=== PATIENT | female | born 1950 | race Two or more races ===

== ENCOUNTER 2024-11-13 23:11 | Inpatient (IN) | payer OTHER ==
[~2024-11-13] VITALS: Ht 160 cm; Wt 76.0 kg
[2024-11-14] VITALS (9 sets, daily range): BP systolic 110–149; BP diastolic 50–58; PULSE 64–93; RESP 20–22; TEMP 97.4–98.6; O2SAT 95–100
[2024-11-14 00:04] LABS: Basophils # (auto) 0 10 ^3/uL (0-0.2); Basophils % (auto) 0.4 % (0.0-2.0); Eosinophils # (auto) 0.1 10 ^3/uL (0-0.8); Hematocrit 38.5 % (36.0-46.0); Hemoglobin 12.7 g/dL (12.2-16.2); Lymphocytes % (auto) 26.3 % (10.0-50.0); Mean Corpuscular Hemoglobin 29.8 pg (28.0-32.0); Mean Corpuscular Volume 90.2 fL (80.0-100.0); Monocytes # (auto) 0.7 10 ^3/uL (0-1.3); Monocytes % (auto) 9.8 % (0.0-12.0); Neutrophils # (auto) 4.6 10 ^3/uL (1.6-8.6); Neutrophils % (auto) 62.5 % (37.0-80.0); Nucleated Red Blood Cells % 0.1 %; Platelet Count (auto) 107 10^3/uL (140-450); Red Blood Cells 4.26 10^6/uL (4.0-5.20); Red Cell Distribution Width 14.6 % (11.8-14.3); White Blood Cell 7.4 10^3/uL (4.4-10.8)
[2024-11-14 00:14] LABS: Alkaline Phosphatase 69 U/L (46-116); Anion Gap 11 (5-15); BUN/Creatinine Ratio 21.2 (10.0-20.0); Bilirubin, Total 0.4 mg/dL (0.2-1.0); Potassium 4.3 mmol/L (3.5-5.1); Sodium 139 mmol/L (136-145); Total Protein 5.9 g/dL (5.7-8.2)
[2024-11-14] MEDS: SODIUM CHLORIDE 0.9% 1,000 ML IV ONE ×2 (00:23→01:31)
[2024-11-14 00:25] LABS: Alanine Aminotransferase 282 U/L (7-40); Albumin 3.2 g/dL (3.2-4.8); Aspartate Aminotransferase 225 U/L (13-40); Blood Urea Nitrogen 66 mg/dL (9-23); Calcium 7.9 mg/dL (8.7-10.4); Carbon Dioxide 18 mmol/L (20-31); Chloride 110 mmol/L (98-107); Glucose 126 mg/dL (74-106); Lipase 89 U/L (12-53)
[2024-11-14] MEDS: ALBUMIN 25% 100 ML IV ONE (00:25)
--- NOTE | 2024-11-14 01:10 | DVH ---
CHEST RADIOGRAPH Indication: Shortness of breath Technique: Single frontal view of the chest was obtained COMPARISON: None FINDINGS: Lines and Tubes: None Lungs: No evidence of focal consolidation. Moderate diffuse prominence of the pulmonary vasculature. Pleura: No effusion. No pneumothorax. Cardiomediastinal contours: Unremarkable Bones: Unremarkable IMPRESSION: 1. No acute disease. 2. Moderate diffuse prominence of the pulmonary vasculature.
--- NOTE | 2024-11-14 02:06 | ED.PDOC ---
History of Present Illness HPI Comments This patient is a 73-year-old female who appears to be in poor overall health who was brought to our ED today via EMS due to generalized weakness and hypotensive concerns over the past week. 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 Patient denies any fever nausea or vomiting. Patient was hypotensive on arrival. Patient presents as an ill individual. History of CHF. Patient may have a history of kidney concerns as well. Chief Complaint: General Weakness Time Seen by MD: 23:14 Reviewed Notes: Nurses Notes, Side Splitter Notes Allergies: Coded Allergies: NO KNOWN ALLERGIES (Unverified , 11/13/24) Information Source: Patient, Emergency Med Personnel Mode of Arrival: EMS Severity: Severe Timing: Days Duration: Since onset Prehospital treatment: None Past Medical History PAST MEDICAL HISTORY: CHF Past Medical History (Other): History of renal disease Surgical History: Denies all surgeries PROBATE CLERK History: No Pertinent PROBATE CLERK History Family History Family History: Reviewed,noncontributory to illness, No family hx of Cancer, No family hx of DM, No family hx of Heart regina, No family hx of HTN, No family hx ofKidney regina, No family hx of Liver regina, No family hx of Lung regina, No family hx of Stroke Social History Smoker: Non-Smoker Alcohol: Denies ETOH Use Drugs: Denies Drug Use Lives In: Home Constitutional: reports: fatigue, weakness; denies: chills, diaphoresis, fever, malaise, sweats, others EENTM: denies: blurred vision, double vision, ear bleeding, ear discharge, ear drainage, ear pain, ear ringing, eye pain, eye redness, hearing loss, mouth pain, mouth swelling, nasal discharge, nose bleeding, nose congestion, nose pain, photophobia, tearing, throat pain, throat swelling, voice changes, others Respiratory: denies: cough, hemoptysis, orthopnea, SOB at rest, shortness of breath, SOB with excertion, stridor, wheezing, others Cardiovascular: denies: chest pain, dizzy spells, diaphoresis, Dyspnea on exertion, edema, irregular heart beat, left arm pain, lightheadedness, p alpitations, PND, syncope, others Gastrointestinal: denies: abdomen distended, abdominal pain, blood streaked bowels, constipated, diarrhea, dysphagia, difficulty swallowing, hematemesis, melena, nausea, poor appetite, poor fluid intake, rectal bleeding, rectal pain, vomiting, others Genitourinary: denies: abnormal vagina bleeding, burning, dyspareunia, dysuria, flank pain, frequency, hematuria, incontinence, pain, , vagina discharge, urgency, others Neurological: reports: dizziness; denies: fainting, headache, left sided numbness, left sided weakness, numbness, paresthesia, pre-existing deficit, right sided numbness, right sided weakness, seizure, speech problems, tingling, tremors, weakness, others Musculoskeletal: denies: back pain, gout, joint pain, joint swelling, muscle pain, muscle stiffness, neck pain, others Integumetry: denies: bruises, change in color, change in hair/nails, dryness, laceration, lesions, lumps, rash, wounds, others Allergic/Immunocompromised: denies: Difficulty Healing, Frequent Infections, Hives, Itching, others Hematologic/Lymphatic: denies: anemia, blood clots, easy bleeding, easy bruising, swollen glands, others Endocrine: denies: excessive hunger, excessive sweating, excessive thirst, excessive urination, flushing, intolerance to cold, intolerance to heat, unexplained weight gain, unexplained weight loss, others Psychiatric: denies: anxiety, bipolar disorder, depression, hopeless, panic disorder, schizophrenia, sleepless, suicidal, others Physical Exam General Appearance: Moderate Distress (Patient presents as a moderately ill 73-year-old female. Patient looks toxic.), Normal HEENT: Normal ENT Inspection, Pharynx Normal, TMs Normal Neck: Full Range of Motion, Non-Tender, Normal, Normal Inspection Respiratory: Chest Non-Tender, No Accessory Muscle Use, Other (Patient displays some mild rhonchi in global bilateral lung amador.) Cardiovascular: No Edema, No JVD, No Murmur, No Gallop, Normal Peripheral Pulses, Regular Rate/Rhythm Breast Exam: Deferred Gastrointestinal: No Organomegaly, Non Tender, No Pulsatile Mass, Normal Bowel Sounds, Soft Genitalia: Deferred Pelvic: Deferred Rectal: Deferred Extremities: No calf tenderness, Normal capillary refill, Normal inspection, Normal range of motion Neurologic: Disoriented, Motor Weakness Cerebellar Function: NOT DONE Reflexes: NOT DONE Skin: Dry, Normal Color, Warm Lymphatic: No Adenopathy Was a procedure done? Was a procedure done?: No Differential Dx Considerations may include: Sepsis, electrolyte abnormality, COVID-19, pneumonia, influenza, renal disease, CHF X-Ray, Labs, Meds, VS Vital Signs Date Time Temp Pulse Resp B/P (MAP) Pulse Ox O2 Delivery O2 Flow Rate FiO2 11/13/24 23:34 67 11/13/24 23:12 98.8 72 16 85/52 (63) 94 98.8 Lab Test 11/14/24 00:50 11/13/24 23:40 Range/Units Troponin I High Sensitivity 1693 *H 1704 *H </=34 ng/L White Blood Count 7.4 4.4-10.8 10^3/uL Red Blood Count 4.26 4.0-5.20 10^6/uL Hemoglobin 12.7 12.2-16.2 g/dL Hematocrit 38.5 36.0-46.0 % Mean Corpuscular Volume 90.2 80.0-100.0 fL Mean Corpuscular Hemoglobin 29.8 28.0-32.0 pg Mean Corpuscular Hemoglobin Concent 33.0 32.0-36.0 g/dL Red Cell Distribution Width 14.6 H 11.8-14.3 % Platelet Count 107 L 140-450 10^3/uL Mean Platelet Volume 10.8 6.9-10.8 fL Neutrophils (%) (Auto) 62.5 37.0-80.0 % Lymphocytes (%) (Auto) 26.3 10.0-50.0 % Monocytes (%) (Auto) 9.8 0.0-12.0 % Eosinophils (%) (Auto) 1.0 0.0-7.0 % Basophils (%) (Auto) 0.4 0.0-2.0 % Neutrophils # (Auto) 4.6 1.6-8.6 10 ^3/uL Lymphocytes # (Auto) 2.0 0.4-5.4 10 ^3/uL Monocytes # (Auto) 0.7 0-1.3 10 ^3/uL Eosinophils # (Auto) 0.1 0-0.8 10 ^3/uL Basophils # (Auto) 0 0-0.2 10 ^3/uL Nucleated Red Blood Cells 0.1 % D-Dimer, Quantitative 1.07 H 0.0-0.49 mg/L FEU Sodium Level 139 136-145 mmol/L Potassium Level 4.3 3.5-5.1 mmol/L Chloride Level 110 H 98-107 mmol/L Carbon Dioxide Level 18 L 20-31 mmol/L Anion Gap 11 5-15 Blood Urea Nitrogen 66 H 9-23 mg/dL Creatinine 3.12 H 0.550-1.02 mg/dL Glomerular Filtration Rate Calc 15 >90 mL/min BUN/Creatinine Ratio 21.2 H 10.0-20.0 Serum Glucose 126 H 74-106 mg/dL Lactic Acid Level 1.6 0.4-2.0 mmol/L Calcium Level 7.9 L 8.7-10.4 mg/dL Total Bilirubin 0.4 0.2-1.0 mg/dL Aspartate Amino Transferase (AST) 225 H 13-40 U/L Alanine Aminotransferase (ALT) 282 H 7-40 U/L Alkaline Phosphatase 69 46-116 U/L B-Type Natriuretic Peptide 215.76 0-100 pg/mL Total Protein 5.9 5.7-8.2 g/dL Albumin 3.2 3.2-4.8 g/dL Lipase 89 H 12-53 U/L Current Medications Medications (Trade) Dose Ordered Sig/Richard Route Start Time Stop Time Status Last Admin Sodium Chloride 1,000 ml @ 150 mls/hr Q6H40M ONCE IV 11/13/24 23:30 11/14/24 01:27 DC 11/14/24 00:23 Albumin Human 100 ml @ 100 mls/hr ONCE ONCE IV 11/13/24 23:30 11/14/24 00:29 DC 11/14/24 00:25 Sodium Chloride 1,000 ml @ 1,000 mls/hr Q1H ONCE IV 11/14/24 01:30 11/14/24 02:29 11/14/24 01:31 X-Ray, Labs, Meds, VS Comment All studies performed the ED were evaluated by me personally. Patient had a significant elevated troponin neuro 1704 and 1693. EKG was remarkable for sinus rhythm with a rate of 67 old inferior infarct, abnormal T-wave in anterior lateral leads and prolonged QT interval. [place] interval of 198 and QT inguinal 527. Discussed case with Dr. Herrera's with respect to notify and Cardiology. He stated to start the patient on heparin and that cardio will evaluate in the morning as the patient has a history of elevated troponins. Additional significant studies revealed an elevated lipase, acute CHF exacerbation, significant acute on chronic renal injury, hypocalcemia and elevated D-dimer. X-ray revealed some pulmonary edema. With the will be entered for multiple consultations including critical nephrology consult as the patient may be in the need of dialysis at this stage. Cardiology will evaluate for cardiac concerns. Patient will require a V/Q scan on Saturday for evaluation of PE. Heparin has been initiated. CT of abdomen was pending at time of this note for evaluation of transaminitis concerns including lipase. Time of 1ST Reevaluation: 02:05 Reevaluation 1ST: Unchanged Consultation: PCP, Cardiology, Other (Nephrology) Patient Education/Counseling: Diagnosis, Treatment Family Education/Counseling: Diagnosis, Treatment Departure 1 Departure Time of Disposition: 02:03 Impression: Primary Impression: Acute coronary syndrome Additional Impressions: Elevated troponin Acute exacerbation of CHF (congestive heart failure) [id number] kidney injury Hypocalcemia Transaminitis Elevated lipase Elevated d-dimer Pulmonary edema Hypotension Disposition: 09 ADMITTED INPATIENT Condition: Poor Discharged With: Self Critical Care Note Critical Care Time?: Yes (45 min-critical care time only) Critical care comment: Due to the high probability of a clinically significant and possibly life- threatening deterioration, this patient required my highest level of preparedness to intervene emergently and therefore, I personally provided 45 minutes of critical care time exclusive of time spent on separate billable procedures. This critical care time includes, but is not limited to, obtaining additional history, re-examination of the patient, evaluation of pulse oximetry, ordering and reviewing of studies as well as arrangement of urgent treatment with the development of a management plan, evaluation of patient's response to treatment as well as frequent reassessments and discussions with other providers. Stability Stability form required: No Heart Score Heart Score: Heart Score Response (Comments) Value History Slightly Suspicious 0 EKG Normal 0 Age >65 2 Risk Factors 1 or 2 risk factors 1 Troponin >3 x's Normal limit 2 Total 5 ANNMARIE FARIAS PAC Nov 14, 2024 02:06
[2024-11-14 02:23] LABS: COVID19 ANTIGEN SOFIA FIA NEGATIVE (NEGATIVE); Rapid Influenza B Negative (Negative)
[2024-11-14 02:24] LABS: Rapid Influenza A Positive (Negative)
[2024-11-14] MEDS: CALCIUM GLUC 1,000mg/50ml-NS 50 ML IV ONE (02:40)
--- NOTE | 2024-11-14 02:53 | DVH ---
Exam: CT CT AB PEL WO CON-NO ORAL OR IV History: Elevated labs Comparison Study: None Technique: Multidetector spiral CT of the abdomen was performed from lung bases to pubic symphysis. I maging was performed without IV contrast. Axial, coronal and sagittal multiplanar reformats were obta ined from the axial data set by the technologist. Radiation Dose : 1. Abdomen/Pelvis: CTDIvol 19.12 mGy, DLP 1027.03 mGy*cm. Findings: Evaluation of solid organs is limited due to lack of intravenous contrast use. Lung Bases: Moderate patchy multifocal infiltrate within the right middle lobe, lingula and bilateral lower lobes. Normal heart size. No pleural or pericardial effusion. Liver: The liver is normal in size. No focal lesions. Gallbladder and Biliary Tree: Cholelithiasis and mild gallbladder wall thickening/ edema. Spleen: Unremarkable Pancreas: The pancreas is grossly normal in appearance. Adrenal Glands: Unremarkable Kidneys: Kidneys are grossly normal without calculi or hydronephrosis. Bilateral renal cortical cysts measure up to 1.6 cm on the right and 1.5 cm on the left. Bladder: Grossly unremarkable for degree of distention. Bowel: The stomach is grossly normal in appearance. Small bowel and colon are normal in caliber and d istribution. The appendix is normal. Ascites: Absent Lymphadenopathy: No mesenteric, retroperitoneal or periportal lymphadenopathy. Abdominal Wall and Mesentery: Unremarkable. Small fat containing umbilical hernia. Vasculature: The visualized abdominal aorta is normal in size and caliber. Atherosclerotic vascular c alcifications. Evaluation of abdominal and pelvic vessels is limited due to lack of intravenous cont rast. Pelvic Organs: Unremarkable Musculoskeletal: No aggressive focal bony lesions, acute fractures or dislocation. Degenerative figueroa e of the lumbar spine noted. IMPRESSION: 1. Moderate patchy multifocal bilateral pulmonary infiltrate within the lung bases. 2. Cholelithiasis and mild gallbladder wall thickening /edema. Radiation optimization: All CT scans at this facility use at least one of these dose optimization kelly hniques: automated exposure control mA and/or kV adjustment per patient size (includes targeted exam s where dose is matched to clinical indication) or iterative reconstruction.
[2024-11-14 02:55] LABS: INR 1.13 (0.9-1.15); Partial Thromboplastin Time 32.1 SEC (24.5-34.5); Prothrombin Time 11.8 sec (9.3-11.8)
[2024-11-14] MEDS: HEPARIN SODIUM (PORCINE) 5000 UNITS/ML 1ML VIAL IV ONE ×2 (03:56→04:15)
[2024-11-14] MEDS: HEPARIN DRIP/D5W 100UNITS/ML 250 ML IV SCH ×2 (04:19→12:15)
--- NOTE | 2024-11-14 06:48 | ECG ---
[facility] Test Date: 2024-11-13 Test Time: 23:34:38 Pat Name: BRYCE ROIS Department: ED Room: 0282T Gender: F Rf Design Engineer: : [id number] Requested By: ANNMARIE FARIAS Order Number: [id number] Reading MD: Dung Curran Measurements Intervals [place] Rate: 67 P: 16 NM: 198 QRS: -3 QRSD: 101 T: 101 QT: 527 QTc: 557 Interpretive Statements Sinus rhythm Inferior infarct, old Abnrm T, consider ischemia, anterolateral lds Prolonged QT interval Electronically Signed On 11-18-2024 12:43:27 PDT by Dung Curran Please click the below link to view image of tracing.
[2024-11-14] MEDS ORDERED: PREG100C66 PO (08:58)
[2024-11-14] MEDS ORDERED: OMEP1CAP70 PO (08:58)
[2024-11-14] MEDS ORDERED: SPIR25TA8 PO (08:58)
[2024-11-14] MEDS ORDERED: LOSA-535 PO (08:58)
[2024-11-14] MEDS ORDERED: FURO20TA4 PO (08:58)
[2024-11-14] MEDS ORDERED: DIPH-751 PO (08:58)
[2024-11-14] MEDS ORDERED: MET25T PO (08:58)
[2024-11-14] MEDS ORDERED: CLON0.2T PO (08:58)
[2024-11-14] MEDS ORDERED: ISOS1TAB37 PO (08:58)
[2024-11-14] MEDS ORDERED: ATOR10TA52 PO (08:58)
[2024-11-14] MEDS ORDERED: ONDANSETRON HCL 4 MG/2 ML VIAL IV PRN (09:00)
[2024-11-14] MEDS ORDERED: MORPHINE SULFATE INJ 2 MG/ml SYRG IV PRN (09:00)
[2024-11-14] MEDS ORDERED: DEXTROSE (50%) 50ML SYRG IV PRN (09:00)
[2024-11-14] MEDS ORDERED: NITROGLYCERIN 0.4 MG SL TAB SL PRN (09:00)
--- NOTE | 2024-11-14 09:07 | DVHHP2 ---
History of Present Illness Reason for Visit: Generalized weakness History of Present Illness Dodie Ramirez is a 73-year-old female with past medical history of hypertension, hyperlipidemia, diabetes type 2, CKD, CHF, spinal stenosis, and right knee surgery who presents to the ED with generalized weakness x1 week. Patient reports that her daughter at home is sick and she may have gotten sick from her. Patient also states that she uses a front wheel walker to ambulate. Patient denies any chest pain, shortness of breath, fever, chills, lightheadedness, dizziness, recent trauma or injury, recent travels, abdominal pain, nausea, vomiting, or diarrhea. Cardiovascular: CHF, HTN, hyperipidemia Renal/: Chronic renal insuff Endocrine: Diabetes Past Medical History Spinal stenosis Past Surgical History: Other (Right knee surgery) Family History: DM, Hypertension, Other (Mom and dad with diabetes and hypertension) Smoke: No ALCOHOL: none Drugs: None Lives: with Family Domestic Violence: Neg Review of Systems Constitutional: Yes: Weakness Allergies: Coded Allergies: NO KNOWN ALLERGIES (Unverified , 11/13/24) Medications Current Medications Medications Dose Ordered Sig/Richard Route Start Time Stop Time Status Last Admin Dose Admin Heparin Sodium/ Dextrose 250 ml @ 9 mls/hr Q24H IV 11/14/24 04:00 11/14/24 04:19 9 MLS/HR Oseltamivir Phosphate 75 mg DAILY PO 11/14/24 10:00 11/19/24 09:59 UNV Exam Vital Signs Vital Signs Date Time Temp Pulse Resp B/P (MAP) Pulse Ox O2 Delivery O2 Flow Rate FiO2 11/14/24 07:21 100 Room Air* 0 21 11/14/24 06:15 98.6 78 14 121/65 (83) 98.6 General Appearance: Alert, Oriented X3, Cooperative, No acute distress HEENT: Atraumatic, PERRLA, EOMI, Mucous membr. moist/pink Respiratory: Normal air movement Cardiovascular: Normal S1, Normal S2, No murmurs Abdominal: Normal bowel sounds, Soft, No tenderness, No hepatospenomegaly, No masses Extremities: No clubbing, No cyanosis, Normal pulses Skin: No significant lesion Neuro: Normal speech, Strength at 5/5 X4 ext, Normal tone, Sensation intact Psych/Mental Status: Mental status NL, Mood NL Labs/Xrays Labs Test 11/14/24 02:35 11/14/24 01:54 11/13/24 23:40 Range/Units Troponin I High Sensitivity 1314 *H </=34 ng/L Influenza Type A Antigen Positive Negative Influenza Type B Antigen Negative Negative SARS-CoV-2 Antigen (Rapid) Negative NEGATIVE White Blood Count 7.4 4.4-10.8 10^3/uL Red Blood Count 4.26 4.0-5.20 10^6/uL Hemoglobin 12.7 12.2-16.2 g/dL Hematocrit 38.5 36.0-46.0 % Mean Corpuscular Volume 90.2 80.0-100.0 fL Mean Corpuscular Hemoglobin 29.8 28.0-32.0 pg Mean Corpuscular Hemoglobin Concent 33.0 32.0-36.0 g/dL Red Cell Distribution Width 14.6 H 11.8-14.3 % Platelet Count 107 L 140-450 10^3/uL Mean Platelet Volume 10.8 6.9-10.8 fL Neutrophils (%) (Auto) 62.5 37.0-80.0 % Lymphocytes (%) (Auto) 26.3 10.0-50.0 % Monocytes (%) (Auto) 9.8 0.0-12.0 % Eosinophils (%) (Auto) 1.0 0.0-7.0 % Basophils (%) (Auto) 0.4 0.0-2.0 % Neutrophils # (Auto) 4.6 1.6-8.6 10 ^3/uL Lymphocytes # (Auto) 2.0 0.4-5.4 10 ^3/uL Monocytes # (Auto) 0.7 0-1.3 10 ^3/uL Eosinophils # (Auto) 0.1 0-0.8 10 ^3/uL Basophils # (Auto) 0 0-0.2 10 ^3/uL Nucleated Red Blood Cells 0.1 % Prothrombin Time 11.8 9.3-11.8 sec Prothrombin Time INR 1.13 0.9-1.15 Activated Partial Thromboplast Time 32.1 24.5-34.5 SEC D-Dimer, Quantitative 1.07 H 0.0-0.49 mg/L FEU Sodium Level 139 136-145 mmol/L Potassium Level 4.3 3.5-5.1 mmol/L Chloride Level 110 H 98-107 mmol/L Carbon Dioxide Level 18 L 20-31 mmol/L Anion Gap 11 5-15 Blood Urea Nitrogen 66 H 9-23 mg/dL Creatinine 3.12 H 0.550-1.02 mg/dL Glomerular Filtration Rate Calc 15 >90 mL/min BUN/Creatinine Ratio 21.2 H 10.0-20.0 Serum Glucose 126 H 74-106 mg/dL Lactic Acid Level 1.6 0.4-2.0 mmol/L Calcium Level 7.9 L 8.7-10.4 mg/dL Total Bilirubin 0.4 0.2-1.0 mg/dL Aspartate Amino Transferase (AST) 225 H 13-40 U/L Alanine Aminotransferase (ALT) 282 H 7-40 U/L Alkaline Phosphatase 69 46-116 U/L B-Type Natriuretic Peptide 215.76 0-100 pg/mL Total Protein 5.9 5.7-8.2 g/dL Albumin 3.2 3.2-4.8 g/dL Exam: CT CT AB PEL WO CON-NO ORAL OR IV History: Elevated labs Comparison Study: None Technique: Multidetector spiral CT of the abdomen was performed from lung bases to pubic symphysis. Imaging was performed without IV contrast. Axial, coronal and sagittal multiplanar reformats were obtained from the axial data set by the technologist. Radiation Dose : 1. Abdomen/Pelvis: CTDIvol 19.12 mGy, DLP 1027.03 mGy*cm. Findings: Evaluation of solid organs is limited due to lack of intravenous contrast use. Lung Bases: Moderate patchy multifocal infiltrate within the right middle lobe, lingula and bilateral lower lobes. Normal heart size. No pleural or pericardial effusion. Liver: The liver is normal in size. No focal lesions. Gallbladder and Biliary Tree: Cholelithiasis and mild gallbladder wall thickening/ edema. Spleen: Unremarkable Pancreas: The pancreas is grossly normal in appearance. Adrenal Glands: Unremarkable Kidneys: Kidneys are grossly normal without calculi or hydronephrosis. Bilateral renal cortical cysts measure up to 1.6 cm on the right and 1.5 cm on the left. Bladder: Grossly unremarkable for degree of distention. Bowel: The stomach is grossly normal in appearance. Small bowel and colon are normal in caliber and distribution. The appendix is normal. Ascites: Absent Lymphadenopathy: No mesenteric, retroperitoneal or periportal lymphadenopathy. Abdominal Wall and Mesentery: Unremarkable. Small fat containing umbilical hernia. Vasculature: The visualized abdominal aorta is normal in size and caliber. Atherosclerotic vascular calcifications. Evaluation of abdominal and pelvic vessels is limited due to lack of intravenous contrast. Pelvic Organs: Unremarkable Musculoskeletal: No aggressive focal bony lesions, acute fractures or dislocation. Degenerative change of the lumbar spine noted. IMPRESSION: 1. Moderate patchy multifocal bilateral pulmonary infiltrate within the lung bases. 2. Cholelithiasis and mild gallbladder wall thickening /edema. CHEST RADIOGRAPH Indication: Shortness of breath Technique: Single frontal view of the chest was obtained COMPARISON: None FINDINGS: Lines and Tubes: None Lungs: No evidence of focal consolidation. Moderate diffuse prominence of the pulmonary vasculature. Pleura: No effusion. No pneumothorax. Cardiomediastinal contours: Unremarkable Bones: Unremarkable IMPRESSION: 1. No acute disease. 2. Moderate diffuse prominence of the pulmonary vasculature. Assessment/Plan Assessment/Plan Assessment Generalized weakness Transaminitis Acute on chronic renal insufficiency Hyperlipasemia Probable pneumonia Influenza A positive Cholelithiasis History of hypertension History of hyperlipidemia History of diabetes type 2 History of CHF History of spinal stenosis History of right knee surgery Plan Admit to tele Heparin drip started in ED Elevated troponins Calcium gluc given in ED NS 2 L given ED Respiratory treatments EKG CT abdomen and pelvis D-dimer COVID test Blood cultures Lactic Lipase BNP Hemoglobin A1c ISS and Accu-Cheks Tamiflu ordered BNP Strict I&Os Daily weights V/Q scan Amylase Lipase TSH A1c Lipid panel UDS Echo ordered IV antibiotics-ceftriaxone Home medications reconciled DVT prophylaxis-patient on heparin PUD prophylaxis-patient on omeprazole Discussed plan of care with patient and nurse Cardiology consult Nephrology consult Consider GI consult if liver enzymes trend upwards Plan discussed with: Patient My Orders Orders - JAEL BAER EARLY CHILDHOOD SERVICES COORDINATOR Procedure Category Date Status Time Amylase LAB 11/14/24 In Process 08:53 Lipase LAB 11/14/24 In Process 08:53 Oseltamivir 75mg PHA 11/14/24 Logged Capsule (Tamiflu 75mg 10:00 *Dr. [facility] CONS 11/14/24 Transmitted -[place] 08:54 * Cardiology Consult CONS 11/14/24 Transmitted 08:54 Furosemide Tablet PHA 11/14/24 Logged (Lasix Tablet) 10:00 Metoprolol Tartrate PHA 11/14/24 Logged Tablet (Lopressor Ta 10:00 Spironolactone PHA 11/14/24 Logged (Aldactone) 10:00 (Nf) Isosorbide PHA 11/14/24 Logged Dinitrate 10:00 (Nf) Losartan PHA 11/14/24 Logged Potassium 10:00 (Nf) Omeprazole PHA 11/14/24 Logged (Omeprazole Dr) 10:00 (Nf) Pregabalin PHA 11/14/24 Logged 10:00 Atorvastatin (Lipitor) PHA 11/14/24 Logged 22:00 Clonidine Hcl Tablet PHA 11/14/24 Logged (Catapres Tablet) 10:00 Admit ADMIT 11/14/24 Transmitted 08:59 Allergies MARCELLA 11/14/24 In Process 08:59 Code Status CODE 11/14/24 Transmitted 08:59 Hydrocodone-Acet PHA 11/14/24 Logged 5/325mg Tab ([place] 09:00 Ondansetron Hcl PHA 11/14/24 Logged (Zofran) 09:00 Complete Blood Count LAB 11/15/24 Verified 04:00 Comprehensive LAB 11/15/24 Verified Metabolic Panel 04:00 Npo (Nothing By DIET 11/14/24 Transmitted Mouth) Diet Breakfast Echo 2d Mode Cardiac US 11/14/24 Logged DOP 08:59 Acetaminophen Tablet PHA 11/14/24 Logged (Tylenol Tablet) 09:00 Nitroglycerin PHA 11/14/24 Logged Sublingual (Ntrostat 09:00 Morphine Sulfate PHA 11/14/24 Logged Injection 09:00 Notify Of Changes [facility] 11/14/24 In Process From Base 08:59 Stenocaptioner For [facility] 11/14/24 In Process 24 Hours 08:59 Emergency Dysrhythmia [facility] 11/14/24 In Process Protocol 08:59 Rhythm Strips Once [facility] 11/14/24 In Process Every Shift 08:59 Oxygen By Nasal RT 11/14/24 Transmitted Cannula 08:59 Ceftriaxone 1gm/50ml PHA 11/14/24 Logged D5w (Rocephin) 09:00 Drug Screen LAB 11/14/24 Transmitted 08:59 Thyroid Stimulating LAB 11/14/24 Transmitted Hormone 08:59 Lipid Panel LAB 11/14/24 Transmitted 08:59 Hemoglobin A1c LAB 11/14/24 Transmitted 08:59 Glucose Blood PHA 11/14/24 Logged (Accu-Chek Comfort 12:00 Insulin R (Human) PHA 11/14/24 Logged (Insulin R) 12:00 Dextrose 50% Syringe PHA 11/14/24 Logged 09:00 Date of Service: Nov 14, 2024 Billing Provider: JAEL BAER Common Visit Codes: [id number] INP/OBS CARE (HIGH) JAEL BAER Nov 14, 2024 09:07
[2024-11-14] MEDS: PANTOPRAZOLE 40 MG TAB PO SCH (09:40)
[2024-11-14] MEDS: cefTRIAXone 1GM/50ML D5W 50 ML IV SCH (09:40)
[2024-11-14 09:44] LABS: Triglycerides 95 mg/dL (< 150)
[2024-11-14 09:45] LABS: LDL Cholesterol 20 mg/dL (< 100)
[2024-11-14 09:46] LABS: Cholesterol 58 mg/dL (< 200)
[2024-11-14 09:47] LABS: HDL Cholesterol 15 mg/dL (40-59)
[2024-11-14 09:55] LABS: Amylase 80 U/L (30-118)
[2024-11-14] MEDS: FUROSEMIDE 20 MG TAB PO SCH (10:00)
[2024-11-14] MEDS: ISOSORBIDE DINITRATE 10 MG TAB PO SCH (10:00)
[2024-11-14] MEDS: METOPROLOL TARTRATE 25 MG TAB PO SCH (10:00)
[2024-11-14] MEDS: cloNIDine HCL 0.1 MG TAB PO SCH (10:00)
[2024-11-14 10:26] LABS: Lipase 73 U/L (12-53)
[2024-11-14] MEDS: PREGABALIN 25 MG CAP PO SCH (10:37)
[2024-11-14] MEDS: LOSARTAN POTASSIUM 50 MG TAB PO SCH (10:37)
[2024-11-14] MEDS: SPIRONOLACTONE 25 MG TAB PO SCH (10:37)
[2024-11-14] MEDS: OSELTAMIVIR 30 MG CAP PO SCH (10:37)
[2024-11-14 11:06] LABS: INR 1.13 (0.9-1.15); Prothrombin Time 11.8 sec (9.3-11.8)
[2024-11-14 11:09] LABS: Partial Thromboplastin Time > 139.0 SEC (24.5-34.5)
[2024-11-14] MEDS: InsuLIN REG 1unit/0.01ml Soln (100units/ml) SC SCH (12:00)
[2024-11-14] MEDS: ACCU-CHEK COMFORT CURVE STRIP VI SCH (12:01)
--- NOTE | 2024-11-14 12:16 | CONS ---
Pharmacy Clinical Information: HEPARIN PER RX APTT RESULT >139 [11/14/24@1025] ON RATE 9ML/HR HEPARIN HELD 1 HOUR FROM 1115 TO 1215 DRIP TO BE RESUMED @1215 TO NEW RATE 6ML/HR APTT ORDERED FOR 11/14@1815 COMMUNICATED WITH KALPESH REIS PHARMACIST Nov 14, 2024 12:16
--- NOTE | 2024-11-14 12:54 | DVHINCON2 ---
Date Seen: Nov 14, 2024 Referring Physician PARMINDER Thompson Reason for Consultation Elevated troponin History of Present Illness This 73-year-old female, [place] mainly speaking, presents in the ED via EMS with a chief complaint of generalized weakness. The patient reports generalized weakness associated with productive phlegm. In the emergency department, the patient underwent a 12 lead ECG revealing normal sinus rhythm with prolonged QT and an old inferior infarct, troponin elevation peaked at 1700 and now down trending. The patient was placed on heparin drip and aspirin. Upon assessment, the patient denies dizziness, diaphoresis, chest pain, orthopnea, PND, or dyspnea. She states that history of CHF and currently taking spironolactone, she underwent a coronary angiogram five years ago with normal coronaries. She does not have a Cardiology that she follow ups with. Significant past medical history of hypertension, CHF, diabetes type 2, CKD, and spinal stenosis. Past Medical History As stated in HPI Past Surgical History Denies Family History: Diabetes mellitus G8 MOTHER Hypertension G8 MOTHER Family History Reviewed, non-contributory to the management of this case. Social History The patient lives at home, denies smoking, alcohol or illicit drugs abuse. Allergies: Coded Allergies: NO KNOWN ALLERGIES (Unverified , 11/13/24) Home Meds Reported Medications Morphine Sulfate (Morphine Sulfate) 15 Mg Tab, 15 MG PO Q8HPRN PRN for PAIN SCALE 7 THRU 10, TAB 11/14/24 Furosemide (Furosemide) 20 Mg Tab, 1 TAB PO BID 11/14/24 Omeprazole (Omeprazole Dr) 20 Mg Cap, 1 CAP PO DAILY 11/14/24 Isosorbide Dinitrate (Isosorbide Dinitrate) 30 Mg Tab, 1 TAB PO DAILY 11/14/24 Metoprolol Tartrate (Lopressor) 25 Mg Tb, 1 TAB PO DAILY 11/14/24 Pregabalin (Pregabalin) 100 Mg Cap, 1 CAP PO BID 11/14/24 Atorvastatin Calcium (ATORVASTATIN CALCIUM) 10 Mg Tab, 1 TAB PO 11/14/24 Losartan Potassium (Losartan Potassium) 100 Mg Tab, 1 TAB PO DAILY 11/14/24 Spironolactone (Spironolactone) 25 Mg Tab, 1 TAB PO BID 11/14/24 Diphenhydramine Hcl (Banophen) 25 Mg Cap, 2 PO BID 11/14/24 Clonidine Hydrochloride (Clonidine Hcl) 0.2 Mg Tab, TAB PO 11/14/24 Current Medications Current Medications Medications (Trade) Dose Ordered Sig/Richard Route PRN Reason Start Time Stop Time Status Last Admin Heparin Sodium/ Dextrose 250 ml @ 9 mls/hr Q24H IV 11/14/24 04:00 11/14/24 12:08 DC 11/14/24 04:19 Oseltamivir Phosphate (Tamiflu 30MG Capsule) 30 mg DAILY PO 11/14/24 10:00 11/19/24 09:59 11/14/24 10:37 Furosemide (Lasix Tablet) 20 mg BIDD PO 11/14/24 10:00 Metoprolol Tartrate (Lopressor Tablet) 25 mg DAILY PO 11/14/24 10:00 Spironolactone (Aldactone) 25 mg BID PO 11/14/24 10:00 11/14/24 10:37 Isosorbide Dinitrate (Isordil Tablet) 30 mg DAILY PO 11/14/24 10:00 Losartan Potassium (Cozaar Tablet) 100 mg DAILY PO 11/14/24 10:00 11/14/24 10:37 Pantoprazole Sodium (Protonix Tablet) 40 mg DAILY@0700 PO 11/14/24 09:27 11/14/24 09:40 Pregabalin (Lyrica Capsule) 100 mg BID PO 11/14/24 10:00 11/14/24 10:37 Atorvastatin Calcium (Lipitor) 10 mg HS PO 11/14/24 22:00 Clonidine HCl (Catapres Tablet) 0.2 mg BID PO 11/14/24 10:00 Acetaminophen/ Hydrocodone Bitart (Engadine 5/325MG Tab) 1 tab Q4HP PRN PO MODERATE PAIN (4-6 PAIN SCALE) 11/14/24 09:00 Ondansetron HCl (Zofran) 4 mg Q4HP PRN IV NAUSEA / VOMITING 11/14/24 09:00 Acetaminophen (Tylenol Tablet) 650 mg Q6HP PRN PO PAIN SCALE 1-3 OR TEMP>100.4 11/14/24 09:00 Nitroglycerin (Ntrostat Sublingual) 0.4 mg Q5MINP PRN SL FOR CHEST PAIN 11/14/24 09:00 Morphine Sulfate 2 mg Q30M PRN IV FOR CHEST PAIN 11/14/24 09:00 Ceftriaxone Sodium 50 ml @ 100 mls/hr DAILY@09 IV 11/14/24 09:00 11/14/24 09:40 Diagnostic Test (Pha) (Accu-Chek Comfort Curve T) 1 strip Q6HR 11/14/24 12:00 11/14/24 12:01 Insulin Human Regular (InsuLIN R) Q6HR SC 11/14/24 12:00 Dextrose 50 ml UD PRN IV Blood Sugar LESS THAN 60 11/14/24 09:00 Heparin Sodium/ Dextrose 250 ml @ 6 mls/hr Q24H IV 11/14/24 12:15 Review of Systems Constitutional: No symptom reported Ears, Nose, & Throat: No symptom reported Eyes: No symptom reported Neurological: No symptoms reported Pulmonary/Respiratory: Productive cough Cardiovascular: No symptom reported Gastrointestinal: No symptom reported Genitourinary: No symptom reported Musculoskeletal: No symptom reported Skin: No symptom reported Psychiatric: No symptom reported Endocrine: No symptom reported Hematologic/Lymphatic: No symptom reported Vital Signs Vital Signs Date Time Temp Pulse Resp B/P (MAP) Pulse Ox O2 Delivery O2 Flow Rate FiO2 11/14/24 12:04 64 21 98 Room Air* 0 21 11/14/24 11:45 97.5 110/58 (75) 97.5 Physical Exam INITIAL VITAL SIGNS: Reviewed by me GENERAL: Alert and interactive. No acute distress. HEAD: Head is normocephalic and atraumatic. EYES: EOMI, PERRL. No scleral icterus. No conjunctival injection. ENT: Moist mucous membranes. NECK: Supple, No masses, Full range of motion. RESPIRATORY: No tachypnea. Clear breath sounds bilaterally. No wheezing, rales, rhonchi. CV: Regular rate and rhythm. No dyspnea, no shortness of breath GI/: Active bowel sounds, soft, nondistended, nontender. No guarding. No rebound. No masses. No CVA tenderness. INTEGUMENTARY: Warm and dry. No obvious rashes. NEUROLOGIC: Alert and oriented. Face is symmetric. Speech is normal. Moves all extremities equally. Labs/Diagnostic Data Labs Test 11/14/24 10:25 11/14/24 02:35 11/14/24 01:54 11/13/24 23:40 Range/Units Prothrombin Time 11.8 9.3-11.8 sec Prothrombin Time INR 1.13 0.9-1.15 Activated Partial Thromboplast Time > 139.0 *H 24.5-34.5 SEC Troponin I High Sensitivity 1314 *H </=34 ng/L Triglycerides Level 95 < 150 mg/dL Cholesterol Level 58 < 200 mg/dL LDL Cholesterol 20 < 100 mg/dL HDL Cholesterol 15 L 40-59 mg/dL Amylase Level 80 30-118 U/L Lipase 73 H 12-53 U/L Thyroid Stimulating Hormone (TSH) 0.49 L 0.55-4.78 uIU/mL Influenza Type A Antigen Positive Negative Influenza Type B Antigen Negative Negative SARS-CoV-2 Antigen (Rapid) Negative NEGATIVE White Blood Count 7.4 4.4-10.8 10^3/uL Red Blood Count 4.26 4.0-5.20 10^6/uL Hemoglobin 12.7 12.2-16.2 g/dL Hematocrit 38.5 36.0-46.0 % Mean Corpuscular Volume 90.2 80.0-100.0 fL Mean Corpuscular Hemoglobin 29.8 28.0-32.0 pg Mean Corpuscular Hemoglobin Concent 33.0 32.0-36.0 g/dL Red Cell Distribution Width 14.6 H 11.8-14.3 % Platelet Count 107 L 140-450 10^3/uL Mean Platelet Volume 10.8 6.9-10.8 fL Neutrophils (%) (Auto) 62.5 37.0-80.0 % Lymphocytes (%) (Auto) 26.3 10.0-50.0 % Monocytes (%) (Auto) 9.8 0.0-12.0 % Eosinophils (%) (Auto) 1.0 0.0-7.0 % Basophils (%) (Auto) 0.4 0.0-2.0 % Neutrophils # (Auto) 4.6 1.6-8.6 10 ^3/uL Lymphocytes # (Auto) 2.0 0.4-5.4 10 ^3/uL Monocytes # (Auto) 0.7 0-1.3 10 ^3/uL Eosinophils # (Auto) 0.1 0-0.8 10 ^3/uL Basophils # (Auto) 0 0-0.2 10 ^3/uL Nucleated Red Blood Cells 0.1 % D-Dimer, Quantitative 1.07 H 0.0-0.49 mg/L FEU Sodium Level 139 136-145 mmol/L Potassium Level 4.3 3.5-5.1 mmol/L Chloride Level 110 H 98-107 mmol/L Carbon Dioxide Level 18 L 20-31 mmol/L Anion Gap 11 5-15 Blood Urea Nitrogen 66 H 9-23 mg/dL Creatinine 3.12 H 0.550-1.02 mg/dL Glomerular Filtration Rate Calc 15 >90 mL/min BUN/Creatinine Ratio 21.2 H 10.0-20.0 Serum Glucose 126 H 74-106 mg/dL Hemoglobin A1c 6.0 H <5.7 % A1C Lactic Acid Level 1.6 0.4-2.0 mmol/L Calcium Level 7.9 L 8.7-10.4 mg/dL Total Bilirubin 0.4 0.2-1.0 mg/dL Aspartate Amino Transferase (AST) 225 H 13-40 U/L Alanine Aminotransferase (ALT) 282 H 7-40 U/L Alkaline Phosphatase 69 46-116 U/L B-Type Natriuretic Peptide 215.76 0-100 pg/mL Total Protein 5.9 5.7-8.2 g/dL Albumin 3.2 3.2-4.8 g/dL PROCEDURE(s): CXRP - CHEST PORTABLE REASON: Shortness of breath ORDER NUMBER(s): [id number], ACCESSION NUMBER(s): [id number] CHEST RADIOGRAPH Indication: Shortness of breath Technique: Single frontal view of the chest was obtained COMPARISON: None FINDINGS: Lines and Tubes: None Lungs: No evidence of focal consolidation. Moderate diffuse prominence of the pulmonary vasculature. Pleura: No effusion. No pneumothorax. Cardiomediastinal contours: Unremarkable Bones: Unremarkable IMPRESSION: 1. No acute disease. 2. Moderate diffuse prominence of the pulmonary vasculature. Assessment NSTEMI likely demand ischemia Possible cardiorenal syndrome Possible acute on chronic CHF exacerbation Elevated D-dimer - rule out PE Acute respiratory failure likely 2/2 Influenza A and Pneumonia Transaminitis Hypertension TORITO and CKD 4 Diabetes type 2 Hyperlipidemia Obesity Plan/Recommendation Plan/Recommendation (Dr. Mcnamara ): * Echocardiogram to evaluate cardiac function * Continue with heparin drip, asa * Lipid lowering agent when appropriate given elevated AST and ALT * Continue to trend troponin and monitor 12 lead ECG * Nephrology consult * V/Q scan Troponin downtrending, likely cardiorenal syndrome, however patient may benefit for ischemic workup in an out-pt setting. We will continue with close cardiac surveillance. This medical document was created using an electronic medical record system with voice recognition software and computerized dictation system. Although this document has been carefully reviewed, there might still be some phonetic and typographical errors. Occasional wrong-word or ``sound-alike substitutions may have occurred due to the inherent limitations of voice recognition software. These areas are purely typographical due to imperfections of the software programs and do not reflect any compromise in the patient's medical care. Please read the chart carefully and recognize, using context, where these substitutions have occurred. Plan discussed with: Patient Plan discussed with: Patient NYHA Physical activity limitations: Class2(Slight)fatigue,sob Date of Service: Nov 14, 2024 Billing Provider: ERIN MCNAMARA MD Cardiology Common Codes: CONSULT ONLY Cardiology Consultation Codes: [id number] CONSULT <60MIN DINO CORRIGAN MONEY COUNTER Nov 14, 2024 12:54
[2024-11-14] MEDS ORDERED: MORP15TA PO (18:52)
--- NOTE | 2024-11-14 19:01 | DVHINCON2 ---
Date Seen: Nov 14, 2024 Referring Physician PARMINDER Thompson Reason for Consultation Elevated troponin History of Present Illness This 73-year-old female, [place] mainly speaking with a past medical history of hypertension, CHF, diabetes type 2, CKD, and spinal stenosis who presents to the ED via EMS with a complaint of generalized weakness The patient reports generalized weakness associated with productive phlegm. In the emergency department, the patient underwent a 12 lead ECG revealing normal sinus rhythm with prolonged QT and an old inferior infarct, troponin elevation peaked at 1700 and now down trending The patient was placed on heparin drip and aspirin. Upon assessment, the patient denies dizziness, diaphoresis, chest pain, orthopnea, PND, or dyspnea. She states that history of CHF and currently taking spironolactone, she underwent a coronary angiogram five years ago with normal coronaries. She does not have a Hospice Home Care Coordinator that she follows up with. TROP x2 [id number], 1314. Chest x-ray showed moderate diffuse prominence of the pulmonary vasculature. Family History: Diabetes mellitus G8 MOTHER Hypertension G8 MOTHER Allergies: Coded Allergies: NO KNOWN ALLERGIES (Unverified , 11/13/24) Home Meds Reported Medications Morphine Sulfate (Morphine Sulfate) 15 Mg Tab, 15 MG PO Q8HPRN PRN for PAIN SCALE 7 THRU 10, TAB 11/14/24 Furosemide (Furosemide) 20 Mg Tab, 1 TAB PO BID 11/14/24 Omeprazole (Omeprazole Dr) 20 Mg Cap, 1 CAP PO DAILY 11/14/24 Isosorbide Dinitrate (Isosorbide Dinitrate) 30 Mg Tab, 1 TAB PO DAILY 11/14/24 Metoprolol Tartrate (Lopressor) 25 Mg Tb, 1 TAB PO DAILY 11/14/24 Pregabalin (Pregabalin) 100 Mg Cap, 1 CAP PO BID 11/14/24 Atorvastatin Calcium (ATORVASTATIN CALCIUM) 10 Mg Tab, 1 TAB PO 11/14/24 Losartan Potassium (Losartan Potassium) 100 Mg Tab, 1 TAB PO DAILY 11/14/24 Spironolactone (Spironolactone) 25 Mg Tab, 1 TAB PO BID 11/14/24 Diphenhydramine Hcl (Banophen) 25 Mg Cap, 2 PO BID 11/14/24 Clonidine Hydrochloride (Clonidine Hcl) 0.2 Mg Tab, TAB PO 11/14/24 Current Medications Current Medications Medications (Trade) Dose Ordered Sig/Richard Route PRN Reason Start Time Stop Time Status Last Admin Heparin Sodium/ Dextrose 250 ml @ 9 mls/hr Q24H IV 11/14/24 04:00 11/14/24 12:08 DC 11/14/24 04:19 Oseltamivir Phosphate (Tamiflu 30MG Capsule) 30 mg DAILY PO 11/14/24 10:00 11/19/24 09:59 11/14/24 10:37 Furosemide (Lasix Tablet) 20 mg BIDD PO 11/14/24 10:00 Metoprolol Tartrate (Lopressor Tablet) 25 mg DAILY PO 11/14/24 10:00 Spironolactone (Aldactone) 25 mg BID PO 11/14/24 10:00 11/14/24 10:37 Isosorbide Dinitrate (Isordil Tablet) 30 mg DAILY PO 11/14/24 10:00 Losartan Potassium (Cozaar Tablet) 100 mg DAILY PO 11/14/24 10:00 11/14/24 10:37 Pantoprazole Sodium (Protonix Tablet) 40 mg DAILY@0700 PO 11/14/24 09:27 11/14/24 09:40 Pregabalin (Lyrica Capsule) 100 mg BID PO 11/14/24 10:00 11/14/24 10:37 Atorvastatin Calcium (Lipitor) 10 mg HS PO 11/14/24 22:00 Clonidine HCl (Catapres Tablet) 0.2 mg BID PO 11/14/24 10:00 Acetaminophen/ Hydrocodone Bitart (Rydal 5/325MG Tab) 1 tab Q4HP PRN PO MODERATE PAIN (4-6 PAIN SCALE) 11/14/24 09:00 Ondansetron HCl (Zofran) 4 mg Q4HP PRN IV NAUSEA / VOMITING 11/14/24 09:00 Acetaminophen (Tylenol Tablet) 650 mg Q6HP PRN PO PAIN SCALE 1-3 OR TEMP>100.4 11/14/24 09:00 Nitroglycerin (Ntrostat Sublingual) 0.4 mg Q5MINP PRN SL FOR CHEST PAIN 11/14/24 09:00 Morphine Sulfate 2 mg Q30M PRN IV FOR CHEST PAIN 11/14/24 09:00 Ceftriaxone Sodium 50 ml @ 100 mls/hr DAILY@09 IV 11/14/24 09:00 11/14/24 09:40 Diagnostic Test (Pha) (Accu-Chek Comfort Curve T) 1 strip Q6HR 11/14/24 12:00 11/14/24 12:01 Insulin Human Regular (InsuLIN R) Q6HR SC 11/14/24 12:00 Dextrose 50 ml UD PRN IV Blood Sugar LESS THAN 60 11/14/24 09:00 Heparin Sodium/ Dextrose 250 ml @ 6 mls/hr Q24H IV 11/14/24 12:15 Review of Systems Constitutional: No symptom reported Ears, Nose, & Throat: No symptom reported Eyes: No symptom reported Neurological: No symptoms reported Pulmonary/Respiratory: Productive cough Cardiovascular: No symptom reported Gastrointestinal: No symptom reported Genitourinary: No symptom reported Musculoskeletal: No symptom reported Skin: No symptom reported Psychiatric: No symptom reported Endocrine: No symptom reported Hematologic/Lymphatic: No symptom reported Vital Signs Vital Signs Date Time Temp Pulse Resp B/P (MAP) Pulse Ox O2 Delivery O2 Flow Rate FiO2 11/14/24 12:04 64 21 98 Room Air* 0 21 11/14/24 11:45 97.5 110/58 (75) 97.5 Physical Exam GENERAL: Alert and oriented x 3. No acute distress. EYES: PERRL, EOMI. Anicteric. HENT: Moist mucous membranes. LUNGS: Clear to auscultation bilaterally. CARDIOVASCULAR: Regular rate and rhythm. ABDOMEN: Soft, nontender and nondistended. EXTREMITIES: No edema. NEUROLOGIC: No focal neurological deficits. SKIN: Warm, dry. Labs/Diagnostic Data Labs Test 11/14/24 10:25 11/14/24 02:35 11/14/24 01:54 11/13/24 23:40 Range/Units Prothrombin Time 11.8 9.3-11.8 sec Prothrombin Time INR 1.13 0.9-1.15 Activated Partial Thromboplast Time > 139.0 *H 24.5-34.5 SEC Troponin I High Sensitivity 1314 *H </=34 ng/L Triglycerides Level 95 < 150 mg/dL Cholesterol Level 58 < 200 mg/dL LDL Cholesterol 20 < 100 mg/dL HDL Cholesterol 15 L 40-59 mg/dL Amylase Level 80 30-118 U/L Lipase 73 H 12-53 U/L Thyroid Stimulating Hormone (TSH) 0.49 L 0.55-4.78 uIU/mL Influenza Type A Antigen Positive Negative Influenza Type B Antigen Negative Negative SARS-CoV-2 Antigen (Rapid) Negative NEGATIVE White Blood Count 7.4 4.4-10.8 10^3/uL Red Blood Count 4.26 4.0-5.20 10^6/uL Hemoglobin 12.7 12.2-16.2 g/dL Hematocrit 38.5 36.0-46.0 % Mean Corpuscular Volume 90.2 80.0-100.0 fL Mean Corpuscular Hemoglobin 29.8 28.0-32.0 pg Mean Corpuscular Hemoglobin Concent 33.0 32.0-36.0 g/dL Red Cell Distribution Width 14.6 H 11.8-14.3 % Platelet Count 107 L 140-450 10^3/uL Mean Platelet Volume 10.8 6.9-10.8 fL Neutrophils (%) (Auto) 62.5 37.0-80.0 % Lymphocytes (%) (Auto) 26.3 10.0-50.0 % Monocytes (%) (Auto) 9.8 0.0-12.0 % Eosinophils (%) (Auto) 1.0 0.0-7.0 % Basophils (%) (Auto) 0.4 0.0-2.0 % Neutrophils # (Auto) 4.6 1.6-8.6 10 ^3/uL Lymphocytes # (Auto) 2.0 0.4-5.4 10 ^3/uL Monocytes # (Auto) 0.7 0-1.3 10 ^3/uL Eosinophils # (Auto) 0.1 0-0.8 10 ^3/uL Basophils # (Auto) 0 0-0.2 10 ^3/uL Nucleated Red Blood Cells 0.1 % D-Dimer, Quantitative 1.07 H 0.0-0.49 mg/L FEU Sodium Level 139 136-145 mmol/L Potassium Level 4.3 3.5-5.1 mmol/L Chloride Level 110 H 98-107 mmol/L Carbon Dioxide Level 18 L 20-31 mmol/L Anion Gap 11 5-15 Blood Urea Nitrogen 66 H 9-23 mg/dL Creatinine 3.12 H 0.550-1.02 mg/dL Glomerular Filtration Rate Calc 15 >90 mL/min BUN/Creatinine Ratio 21.2 H 10.0-20.0 Serum Glucose 126 H 74-106 mg/dL Hemoglobin A1c 6.0 H <5.7 % A1C Lactic Acid Level 1.6 0.4-2.0 mmol/L Calcium Level 7.9 L 8.7-10.4 mg/dL Total Bilirubin 0.4 0.2-1.0 mg/dL Aspartate Amino Transferase (AST) 225 H 13-40 U/L Alanine Aminotransferase (ALT) 282 H 7-40 U/L Alkaline Phosphatase 69 46-116 U/L B-Type Natriuretic Peptide 215.76 0-100 pg/mL Total Protein 5.9 5.7-8.2 g/dL Albumin 3.2 3.2-4.8 g/dL Assessment NSTEMI rule out type 1. Possible cardiorenal syndrome. Possible acute on chronic CHF exacerbation. Elevated D-dimer - rule out PE. Acute respiratory failure likely 2/2 Influenza A and Pneumonia. Transaminitis. Hypertension. TORITO and CKD 4. Diabetes type 2. Hyperlipidemia. Obesity. Plan/Recommendation I agree with your ongoing assessment and care of plan. Patient has been seen by Ximena Chase NP on my behalf, her and I discussed the plan with the patient. Echocardiogram to evaluate cardiac function. Continue with heparin drip, asa. Lipid lowering agent when appropriate given elevated AST and ALT. Continue to trend troponin and monitor 12 lead ECG. Nephrology consult. V/Q scan. Troponin downtrending, likely cardiorenal syndrome, however patient may benefit for ischemic workup once kidney function has improved. We will continue with close cardiac surveillance. Additional plan as per the hospital course. Plan discussed with: Patient NYHA Physical activity limitations: Class2(Slight)fatigue,sob Date of Service: Nov 14, 2024 Billing Provider: ERIN MCNAMARA MD Cardiology Common Codes: 07395-LSBSPEN INP/OBS CARE (High) Cardiology Consultation Codes: [id number] CONSULT <60MIN ERIN MCNAMARA MD Nov 14, 2024 14:06
[2024-11-14] MEDS: ATORVASTATIN 20 MG TAB PO SCH (21:25)
[2024-11-14 21:27] LABS: INR 1.11 (0.9-1.15); Partial Thromboplastin Time 49.8 SEC (24.5-34.5); Prothrombin Time 11.6 sec (9.3-11.8)
--- NOTE | 2024-11-14 22:49 | DVHSR ---
APPROVED REPORT EXAM: Two-dimensional and M-mode echocardiogram with Doppler and color Doppler. Blood Pressure: 121/65 mmHg INDICATION R/O Cardiac defects RISK FACTORS Height: 5' 8", Weight: 169 DIMENSIONS LVDd4.7 (3.8-5.7cm)LA (2D)4.0 (1.9-4.0cm)Aortic Root3.4 (2.0-3.7cm) LVDs3.5 (2.5-4.0cm)LA (MM) (1.9-4.0cm)Aortic Cusp Exc1.9 (1.5-2.0cm) EF (%) 50.0 (55-70%)Rt. Atrium3.9 (1.9-4.0cm)Asc. Aorta cm IVSd1.0 (0.7-1.1cm)RV (D) (1.8-2.4cm) PWd0.8 (0.7-1.1cm) Mitral Valve MitralMitral Stenosis E wave1.10m/sMV Mean GR.mmHg A wave1.30m/sMV Peak GR.mmHg E/A ratio0.82D MVAcm2 Aortic Valve Aortic ValveAortic Stenosis V11.10m/Yolis Mean GR.7mmHg V21.70m/Yolis Peak GR.13mmHg LVOT Diameter2.2 (1.8-2.4cm)Doppler AVA2.46cm2 Conclusion MILD LVH AND MILD LV DIASTOLIC DYSFUNCTION LV EF IS 65% AND IS NORMAL POSTERIOR MITRAL LEAFLET IS CALCIFIED MILD MR AORTIC SCLEROSIS MILD AORTIC REGURGITATION NO EFFUSION NORMAL RV FUNCTION AND SIZE
[2024-11-15] VITALS (8 sets, daily range): BP systolic 115–154; BP diastolic 52–86; PULSE 66–93; RESP 16–20; TEMP 98.1–99.3; O2SAT 93–100
[2024-11-15] MEDS: HYDROcodone-ACET 5/325MG TAB PO PRN (00:20)
[2024-11-15 03:14] LABS: Basophils # (auto) 0 10 ^3/uL (0-0.2); Basophils % (auto) 0.7 % (0.0-2.0); Eosinophils # (auto) 0 10 ^3/uL (0-0.8); Eosinophils % (auto) 0.1 % (0.0-7.0); Hemoglobin 13.2 g/dL (12.2-16.2); Lymphocytes # (auto) 1.3 10 ^3/uL (0.4-5.4); Lymphocytes % (auto) 29.1 % (10.0-50.0); Mean Corpuscular Hemoglobin 29.5 pg (28.0-32.0); Mean Corpuscular Hgb Conc. 33.9 g/dL (32.0-36.0); Mean Corpuscular Volume 87.2 fL (80.0-100.0); Monocytes # (auto) 0.5 10 ^3/uL (0-1.3); Monocytes % (auto) 10.7 % (0.0-12.0); Neutrophils # (auto) 2.6 10 ^3/uL (1.6-8.6); Neutrophils % (auto) 59.4 % (37.0-80.0); Nucleated Red Blood Cells % 0.4 %; Platelet Count (auto) 101 10^3/uL (140-450); Red Blood Cells 4.47 10^6/uL (4.0-5.20); Red Cell Distribution Width 14.4 % (11.8-14.3); White Blood Cell 4.4 10^3/uL (4.4-10.8)
[2024-11-15 03:24] LABS: Alkaline Phosphatase 75 U/L (46-116); Anion Gap 11 (5-15); BUN/Creatinine Ratio 23.7 (10.0-20.0); Bilirubin, Total 0.4 mg/dL (0.2-1.0); Calcium 9.2 mg/dL (8.7-10.4); Sodium 139 mmol/L (136-145); Total Protein 6.9 g/dL (5.7-8.2)
[2024-11-15 03:30] LABS: INR 1.12 (0.9-1.15); Partial Thromboplastin Time 45.9 SEC (24.5-34.5); Prothrombin Time 11.7 sec (9.3-11.8)
[2024-11-15 03:34] LABS: Alanine Aminotransferase 246 U/L (7-40); Aspartate Aminotransferase 171 U/L (13-40); Blood Urea Nitrogen 47 mg/dL (9-23); Carbon Dioxide 18 mmol/L (20-31); Chloride 110 mmol/L (98-107); Glucose 190 mg/dL (74-106); Potassium 5.3 mmol/L (3.5-5.1)
[2024-11-15] MEDS: HEPARIN DRIP/D5W 100UNITS/ML 250 ML IV SCH ×3 (04:00→22:56)
--- NOTE | 2024-11-15 08:28 | DVHPN2 ---
Subjective No cardiac event reported Changes from previous H/P or p: No Changes Respiratory: Cough Objective Vitals Vital Signs Date Time Temp Pulse Resp B/P (MAP) Pulse Ox O2 Delivery O2 Flow Rate FiO2 11/15/24 06:01 142/59 11/15/24 05:00 98.1 81 20 95 98.1 11/14/24 20:00 Room Air* 0 21 Intake/Output Intake and Output 11/15/24 07:00 Intake Total 410 ml Output Total 825 ml Balance -415 ml Intake Oral 360 ml IV Total 50 ml Output Urine Total 825 ml # Voids 3 # Bowel Movements 1 Medications Current Medications Medications Dose Ordered Sig/Richard Route Start Time Stop Time Status Last Admin Dose Admin Oseltamivir Phosphate 30 mg DAILY PO 11/14/24 10:00 11/19/24 09:59 11/14/24 10:37 30 MG Furosemide 20 mg BIDD PO 11/14/24 10:00 11/15/24 06:01 20 MG Metoprolol Tartrate 25 mg DAILY PO 11/14/24 10:00 Spironolactone 25 mg BID PO 11/14/24 10:00 11/14/24 21:26 25 MG Isosorbide Dinitrate 30 mg DAILY PO 11/14/24 10:00 Losartan Potassium 100 mg DAILY PO 11/14/24 10:00 11/14/24 10:37 100 MG Pantoprazole Sodium 40 mg DAILY@0700 PO 11/14/24 09:27 11/15/24 06:01 40 MG Pregabalin 100 mg BID PO 11/14/24 10:00 11/14/24 21:25 100 MG Atorvastatin Calcium 10 mg HS PO 11/14/24 22:00 11/14/24 21:25 10 MG Clonidine HCl 0.2 mg BID PO 11/14/24 10:00 11/14/24 22:26 0.2 MG Acetaminophen/ Hydrocodone Bitart 1 tab Q4HP PRN PO 11/14/24 09:00 11/15/24 00:20 1 TAB Ondansetron HCl 4 mg Q4HP PRN IV 11/14/24 09:00 Acetaminophen 650 mg Q6HP PRN PO 11/14/24 09:00 Nitroglycerin 0.4 mg Q5MINP PRN SL 11/14/24 09:00 Morphine Sulfate 2 mg Q30M PRN IV 11/14/24 09:00 Ceftriaxone Sodium 50 ml @ 100 mls/hr DAILY@09 IV 11/14/24 09:00 11/14/24 09:40 100 MLS/HR Diagnostic Test (Pha) 1 strip Q6HR 11/14/24 12:00 11/15/24 06:02 1 STRIP Insulin Human Regular Q6HR SC 11/14/24 12:00 11/15/24 06:06 2 UNITS Dextrose 50 ml UD PRN IV 11/14/24 09:00 Heparin Sodium/ Dextrose 250 ml @ 8 mls/hr Q24H IV 11/15/24 04:00 Laboratory Results Laboratory Tests 11/15/24 02:49 Chemistry Test 11/15/24 02:49 Albumin 4.0 g/dL (3.2-4.8) Calcium Level 9.2 mg/dL (8.7-10.4) Total Protein 6.9 g/dL (5.7-8.2) Coagulation Test 11/14/24 10:25 11/14/24 21:00 11/15/24 02:49 Prothrombin Time 11.8 sec (9.3-11.8) 11.6 sec (9.3-11.8) 11.7 sec (9.3-11.8) Prothrombin Time INR 1.13 (0.9-1.15) 1.11 (0.9-1.15) 1.12 (0.9-1.15) Activated Partial Thromboplast Time > 139.0 SEC (24.5-34.5) *H 49.8 SEC (24.5-34.5) H 45.9 SEC (24.5-34.5) H Cardiac Markers Test 11/15/24 02:49 B-Type Natriuretic Peptide 577.59 pg/mL (0-100) LFT Test 11/15/24 02:49 Alanine Aminotransferase (ALT) 246 U/L (7-40) H Alkaline Phosphatase 75 U/L (46-116) Aspartate Amino Transferase (AST) 171 U/L (13-40) H Total Bilirubin 0.4 mg/dL (0.2-1.0) Microbiology Microbiology Date/Time Source Procedure Growth Status 11/13/24 23:47 Blood Blood Culture - Preliminary NO GROWTH AFTER 24 HOURS OF INCUBATION. Resulted Assessment/Plan Assessment/Plan NSTEMI likely demand ischemia Possible cardiorenal syndrome Possible acute on chronic CHF exacerbation Elevated D-dimer - rule out PE Acute respiratory failure likely 2/2 Influenza A and Pneumonia Transaminitis Hypertension TORITO and CKD 4 Diabetes type 2 Hyperlipidemia Obesity Plan/Recommendation Plan/Recommendation (Dr. Mulligan ): * Echocardiogram reveals EF 65% * DC heparin drip once V/Q scan is completed * Lipid lowering agent when appropriate given elevated AST and ALT * V/Q scan Troponin downtrending, likely cardiorenal syndrome, however patient may benefit for ischemic workup in an out-pt setting. We will sign out for now. Please reconsult if necessary. Plan discussed with: Patient My Orders Orders - DINO CORRIGAN Procedure Category Date Status Time Nm Vq Scan NM 11/14/24 Logged 12:51 Daily Weight MARCELLA 11/14/24 In Process 13:28 Strict I & O MARCELLA 11/14/24 In Process 13:28 IDNO CORRIGAN Nov 15, 2024 08:27
[2024-11-15] MEDS: SODIUM ZIRCONIUM CYCL 10 GM PAK PO ONE (11:30)
[2024-11-15 11:43] LABS: INR 1.14 (0.9-1.15); Prothrombin Time 11.9 sec (9.3-11.8)
[2024-11-15 11:45] LABS: Partial Thromboplastin Time 95.1 SEC (24.5-34.5)
--- NOTE | 2024-11-15 12:12 | CONS ---
Pharmacy Clinical Information: HEPARIN DRIP STOPPED PER APTT OF 95.1. AFTER 1 HR, DRIP WILL RE-START AT 500 UNITS/HR = 5 ML/HR CONFIRMED WITH JANETH WHITE NEXT APTT DRAW SCHEDULED FOR 1900 PER RX PROTOCOL ENRIQUE CAMARGO PHARMACIST Nov 15, 2024 12:12
--- NOTE | 2024-11-15 13:20 | DVHPN2 ---
Reviewed: Care Plan, H&P, Labs, Medications, Previous Orders, Radiology Changes from previous H/P or p: No Changes Respiratory: Cough Objective Vitals Vital Signs Date Time Temp Pulse Resp B/P (MAP) Pulse Ox O2 Delivery O2 Flow Rate FiO2 11/15/24 11:17 66 115/63 11/15/24 09:00 98.2 18 95 98.2 11/14/24 20:00 Room Air* 0 21 Intake/Output Intake and Output 11/15/24 07:00 Intake Total 410 ml Output Total 825 ml Balance -415 ml Intake Oral 360 ml IV Total 50 ml Output Urine Total 825 ml # Voids 3 # Bowel Movements 1 Medications Current Medications Medications Dose Ordered Sig/Richard Route Start Time Stop Time Status Last Admin Dose Admin Oseltamivir Phosphate 30 mg DAILY PO 11/14/24 10:00 11/19/24 09:59 11/15/24 10:16 30 MG Furosemide 20 mg BIDD PO 11/14/24 10:00 11/15/24 06:01 20 MG Metoprolol Tartrate 25 mg DAILY PO 11/14/24 10:00 11/15/24 10:17 25 MG Spironolactone 25 mg BID PO 11/14/24 10:00 11/15/24 10:17 25 MG Isosorbide Dinitrate 30 mg DAILY PO 11/14/24 10:00 11/15/24 10:16 30 MG Pantoprazole Sodium 40 mg DAILY@0700 PO 11/14/24 09:27 11/15/24 06:01 40 MG Pregabalin 100 mg BID PO 11/14/24 10:00 11/15/24 10:15 100 MG Atorvastatin Calcium 10 mg HS PO 11/14/24 22:00 11/14/24 21:25 10 MG Clonidine HCl 0.2 mg BID PO 11/14/24 10:00 11/14/24 22:26 0.2 MG Acetaminophen/ Hydrocodone Bitart 1 tab Q4HP PRN PO 11/14/24 09:00 11/15/24 00:20 1 TAB Ondansetron HCl 4 mg Q4HP PRN IV 11/14/24 09:00 Acetaminophen 650 mg Q6HP PRN PO 11/14/24 09:00 Nitroglycerin 0.4 mg Q5MINP PRN SL 11/14/24 09:00 Morphine Sulfate 2 mg Q30M PRN IV 11/14/24 09:00 Ceftriaxone Sodium 50 ml @ 100 mls/hr DAILY@09 IV 11/14/24 09:00 11/15/24 09:20 100 MLS/HR Diagnostic Test (Pha) 1 strip Q6HR 11/14/24 12:00 11/15/24 06:02 1 STRIP Insulin Human Regular Q6HR SC 11/14/24 12:00 11/15/24 06:06 2 UNITS Dextrose 50 ml UD PRN IV 11/14/24 09:00 Heparin Sodium/ Dextrose 250 ml @ 5 mls/hr Q24H IV 11/15/24 13:15 Laboratory Results Laboratory Tests 11/15/24 02:49 Chemistry Test 11/15/24 02:49 Albumin 4.0 g/dL (3.2-4.8) Calcium Level 9.2 mg/dL (8.7-10.4) Total Protein 6.9 g/dL (5.7-8.2) Coagulation Test 11/14/24 21:00 11/15/24 02:49 11/15/24 11:02 Prothrombin Time 11.6 sec (9.3-11.8) 11.7 sec (9.3-11.8) 11.9 sec (9.3-11.8) H Prothrombin Time INR 1.11 (0.9-1.15) 1.12 (0.9-1.15) 1.14 (0.9-1.15) Activated Partial Thromboplast Time 49.8 SEC (24.5-34.5) H 45.9 SEC (24.5-34.5) H 95.1 SEC (24.5-34.5) *H Cardiac Markers Test 11/15/24 02:49 B-Type Natriuretic Peptide 577.59 pg/mL (0-100) LFT Test 11/15/24 02:49 Alanine Aminotransferase (ALT) 246 U/L (7-40) H Alkaline Phosphatase 75 U/L (46-116) Aspartate Amino Transferase (AST) 171 U/L (13-40) H Total Bilirubin 0.4 mg/dL (0.2-1.0) Microbiology Microbiology Date/Time Source Procedure Growth Status 11/13/24 23:47 Blood Blood Culture - Preliminary NO GROWTH AFTER 24 HOURS OF INCUBATION. Resulted Labs and/or images reviewed: Labs reviewed by me, Image(s) reviewed by me Assessment/Plan Assessment/Plan Acute Hypoxic respiratory failure: Oxygen by nasal cannula Acute generalized weakness Type a flu: Tamiflu Acute community-acquired bilateral pneumonia: Rocephin azithromycin Acute on chronic congestive heart failure: Lasix spironolactone Hypotension: Metoprolol Hypercholesterolemia: Lipitor Non ST-elevation [place] troponin 1.6 K: Heparin, consult by Dr. Timo Mulligan appreciated Diabetes: Insulin sliding scale Spinal stenosis Cholelithiasis CKD 5: Nephrology consult D-dimer 1.07 V/Q scan ordered to rule out PE Time spent 70 minutes Patient is full code Advanced care planning time 20 mts Plan discussed with: Patient My Orders Orders - KENYETTA LIU MD Procedure Category Date Status Time Azithromycin 500mg/ PHA 11/16/24 Logged 250ml (Zithromax 50 10:00 Azithromycin 500mg/ PHA 11/15/24 Logged 250ml (Zithromax 50 13:30 Date of Service: Nov 15, 2024 Billing Provider: KENYETTA LIU MD Common Visit Codes: [id number] CARE 30-74 MIN KENYETTA LIU MD Nov 15, 2024 13:20
[2024-11-15] MEDS ORDERED: AZITHROMYCIN 500MG/ 250ML 250 ML IV ONE (13:30)
--- NOTE | 2024-11-15 15:02 | DVH ---
INDICATION: mannie TECHNIQUE: Multiple real-time sonographic images of the kidneys and bladder were obtained. COMPARISON: None FINDINGS: The right kidney measures 8 cm in length, which is normal in size. There is normal echogeni city of the right kidney. No hydronephrosis. The left kidney measures 9 cm in length, which is normal in size. There is normal echogenicity of the left kidney. No hydronephrosis. No large intraluminal masses are seen in the bladder. IMPRESSION: 1. Normal sonographic appearance of the kidneys. No hydronephrosis.
--- NOTE | 2024-11-15 15:10 | DVHINCON2 ---
Date of service: Nov 15, 2024 Referring Physician Donna Reason for Consultation CKD History of Present Illness 73 y/o female with past medical hx of CKD stage 3, HTN, DM type 2, CHF, spinal stenosis, hyperlipidemia. Pt was admitted for generalized weakness, Positive for Influenza A. Pt reports generalized weakness x 1 week. On admission BUN 66, creat 3.12, GFR 15. Repeat labs on 11/15 BUN 47, creat 1.98, GFR 26. Pt reports hx of CKD stage 3 does not recall last GFR. Follows nephrology as outpatient last follow up was about 1 year ago. Reports HTN and DM are well controlled. Denies NSAID use. Nephrology consult for CKD Past Medical History CKD stage 3, HTN, DM type 2, CHF, spinal stenosis, hyperlipidemia Allergies: Coded Allergies: NO KNOWN ALLERGIES (Unverified , 11/13/24) Home Meds Reported Medications Morphine Sulfate (Morphine Sulfate) 15 Mg Tab, 15 MG PO Q8HPRN PRN for PAIN SCALE 7 THRU 10, TAB 11/14/24 Furosemide (Furosemide) 20 Mg Tab, 1 TAB PO BID 11/14/24 Omeprazole (Omeprazole Dr) 20 Mg Cap, 1 CAP PO DAILY 11/14/24 Isosorbide Dinitrate (Isosorbide Dinitrate) 30 Mg Tab, 1 TAB PO DAILY 11/14/24 Metoprolol Tartrate (Lopressor) 25 Mg Tb, 1 TAB PO DAILY 11/14/24 Pregabalin (Pregabalin) 100 Mg Cap, 1 CAP PO BID 11/14/24 Atorvastatin Calcium (ATORVASTATIN CALCIUM) 10 Mg Tab, 1 TAB PO 11/14/24 Losartan Potassium (Losartan Potassium) 100 Mg Tab, 1 TAB PO DAILY 11/14/24 Spironolactone (Spironolactone) 25 Mg Tab, 1 TAB PO BID 11/14/24 Diphenhydramine Hcl (Banophen) 25 Mg Cap, 2 PO BID 11/14/24 Clonidine Hydrochloride (Clonidine Hcl) 0.2 Mg Tab, TAB PO 11/14/24 Current Medications Current Medications Medications (Trade) Dose Ordered Sig/Richard Route PRN Reason Start Time Stop Time Status Last Admin Atorvastatin Calcium (Lipitor) 10 mg HS PO 11/14/24 22:00 11/14/24 21:25 Heparin Sodium/ Dextrose 250 ml @ 8 mls/hr Q24H IV 11/15/24 04:00 11/15/24 12:06 DC Heparin Sodium/ Dextrose 250 ml @ 5 mls/hr Q24H IV 11/15/24 13:15 11/15/24 13:29 Azithromycin 250 ml @ 125 mls/hr DAILY IV 11/16/24 10:00 11/15/24 13:37 DC Doxycycline Hyclate 100 ml @ 50 mls/hr Q12HR IV 11/15/24 13:45 11/15/24 16:02 Family History: Diabetes mellitus G8 MOTHER Hypertension G8 MOTHER Review of Systems 10 systems reviewed and negative except as per HPI H&P Exam Vital Signs/I&O Vital Sign Date Time Temp Pulse Resp B/P (MAP) Pulse Ox O2 Delivery O2 Flow Rate FiO2 11/15/24 18:53 132/60 11/15/24 17:00 98.1 69 20 98 98.1 11/15/24 08:00 Room Air* 0 21 Intake and Output 11/14/24 11/15/24 19:00 07:00 Intake Total 50 ml 360 ml Output Total 825 ml Balance 50 ml -465 ml Intake Oral 0 ml 360 ml IV Total 50 ml Output Urine Total 825 ml # Voids 3 # Bowel Movements 1 Physical Exam Gen: Appears stated age, no acute distress HEENT: Pupils equal and reactive to light and accommodation Lungs: Bilateral air entry, no rales CVS: RRR, normal S1 and S2 Abd: normoactive bowel sounds, soft, nondistended Ext: No edema Neuro: Alert and oriented x4 Labs/Diagnostic Data Labs/Diagnostic Data Laboratory Tests Test 11/15/24 18:42 11/15/24 13:24 11/15/24 11:02 11/15/24 05:26 Range/Units POC Glucose 170 H 151 H 159 H 70-106 mg/dl Prothrombin Time 11.9 H 9.3-11.8 sec Prothrombin Time INR 1.14 0.9-1.15 Activated Partial Thromboplast Time 95.1 *H 24.5-34.5 SEC Test 11/15/24 02:49 11/15/24 00:23 11/14/24 21:00 11/14/24 10:25 Range/Units White Blood Count 4.4 # 4.4-10.8 10^3/uL Red Blood Count 4.47 4.0-5.20 10^6/uL Hemoglobin 13.2 12.2-16.2 g/dL Hematocrit 39.0 36.0-46.0 % Mean Corpuscular Volume 87.2 80.0-100.0 fL Mean Corpuscular Hemoglobin 29.5 28.0-32.0 pg Mean Corpuscular Hemoglobin Concent 33.9 32.0-36.0 g/dL Red Cell Distribution Width 14.4 H 11.8-14.3 % Platelet Count 101 L 140-450 10^3/uL Mean Platelet Volume 11.2 H 6.9-10.8 fL Neutrophils (%) (Auto) 59.4 37.0-80.0 % Lymphocytes (%) (Auto) 29.1 10.0-50.0 % Monocytes (%) (Auto) 10.7 0.0-12.0 % Eosinophils (%) (Auto) 0.1 0.0-7.0 % Basophils (%) (Auto) 0.7 0.0-2.0 % Neutrophils # (Auto) 2.6 1.6-8.6 10 ^3/uL Lymphocytes # (Auto) 1.3 0.4-5.4 10 ^3/uL Monocytes # (Auto) 0.5 0-1.3 10 ^3/uL Eosinophils # (Auto) 0 0-0.8 10 ^3/uL Basophils # (Auto) 0 0-0.2 10 ^3/uL Nucleated Red Blood Cells 0.4 % Prothrombin Time 11.7 11.6 11.8 9.3-11.8 sec Prothrombin Time INR 1.12 1.11 1.13 0.9-1.15 Activated Partial Thromboplast Time 45.9 H 49.8 H > 139.0 *H 24.5-34.5 SEC Sodium Level 139 136-145 mmol/L Potassium Level 5.3 H 3.5-5.1 mmol/L Chloride Level 110 H 98-107 mmol/L Carbon Dioxide Level 18 L 20-31 mmol/L Anion Gap 11 5-15 Blood Urea Nitrogen 47 #H 9-23 mg/dL Creatinine 1.98 #H 0.550-1.02 mg/dL Glomerular Filtration Rate Calc 26 >90 mL/min BUN/Creatinine Ratio 23.7 H 10.0-20.0 Serum Glucose 190 H 74-106 mg/dL Calcium Level 9.2 8.7-10.4 mg/dL Total Bilirubin 0.4 0.2-1.0 mg/dL Aspartate Amino Transferase (AST) 171 H 13-40 U/L Alanine Aminotransferase (ALT) 246 H 7-40 U/L Alkaline Phosphatase 75 46-116 U/L B-Type Natriuretic Peptide 577.59 0-100 pg/mL Total Protein 6.9 5.7-8.2 g/dL Albumin 4.0 3.2-4.8 g/dL POC Glucose 155 H 70-106 mg/dl Test 11/14/24 02:35 11/14/24 01:54 11/14/24 00:50 11/13/24 23:40 Range/Units Troponin I High Sensitivity 1314 *H 1693 *H 1704 *H </=34 ng/L Triglycerides Level 95 < 150 mg/dL Cholesterol Level 58 < 200 mg/dL LDL Cholesterol 20 < 100 mg/dL HDL Cholesterol 15 L 40-59 mg/dL Amylase Level 80 30-118 U/L Lipase 73 H 89 H 12-53 U/L Thyroid Stimulating Hormone (TSH) 0.49 L 0.55-4.78 uIU/mL Influenza Type A Antigen Positive Negative Influenza Type B Antigen Negative Negative SARS-CoV-2 Antigen (Rapid) Negative NEGATIVE White Blood Count 7.4 4.4-10.8 10^3/uL Red Blood Count 4.26 4.0-5.20 10^6/uL Hemoglobin 12.7 12.2-16.2 g/dL Hematocrit 38.5 36.0-46.0 % Mean Corpuscular Volume 90.2 80.0-100.0 fL Mean Corpuscular Hemoglobin 29.8 28.0-32.0 pg Mean Corpuscular Hemoglobin Concent 33.0 32.0-36.0 g/dL Red Cell Distribution Width 14.6 H 11.8-14.3 % Platelet Count 107 L 140-450 10^3/uL Mean Platelet Volume 10.8 6.9-10.8 fL Neutrophils (%) (Auto) 62.5 37.0-80.0 % Lymphocytes (%) (Auto) 26.3 10.0-50.0 % Monocytes (%) (Auto) 9.8 0.0-12.0 % Eosinophils (%) (Auto) 1.0 0.0-7.0 % Basophils (%) (Auto) 0.4 0.0-2.0 % Neutrophils # (Auto) 4.6 1.6-8.6 10 ^3/uL Lymphocytes # (Auto) 2.0 0.4-5.4 10 ^3/uL Monocytes # (Auto) 0.7 0-1.3 10 ^3/uL Eosinophils # (Auto) 0.1 0-0.8 10 ^3/uL Basophils # (Auto) 0 0-0.2 10 ^3/uL Nucleated Red Blood Cells 0.1 % Prothrombin Time 11.8 9.3-11.8 sec Prothrombin Time INR 1.13 0.9-1.15 Activated Partial Thromboplast Time 32.1 24.5-34.5 SEC D-Dimer, Quantitative 1.07 H 0.0-0.49 mg/L FEU Sodium Level 139 136-145 mmol/L Potassium Level 4.3 3.5-5.1 mmol/L Chloride Level 110 H 98-107 mmol/L Carbon Dioxide Level 18 L 20-31 mmol/L Anion Gap 11 5-15 Blood Urea Nitrogen 66 H 9-23 mg/dL Creatinine 3.12 H 0.550-1.02 mg/dL Glomerular Filtration Rate Calc 15 >90 mL/min BUN/Creatinine Ratio 21.2 H 10.0-20.0 Serum Glucose 126 H 74-106 mg/dL Hemoglobin A1c 6.0 H <5.7 % A1C Lactic Acid Level 1.6 0.4-2.0 mmol/L Calcium Level 7.9 L 8.7-10.4 mg/dL Total Bilirubin 0.4 0.2-1.0 mg/dL Aspartate Amino Transferase (AST) 225 H 13-40 U/L Alanine Aminotransferase (ALT) 282 H 7-40 U/L Alkaline Phosphatase 69 46-116 U/L B-Type Natriuretic Peptide 215.76 0-100 pg/mL Total Protein 5.9 5.7-8.2 g/dL Albumin 3.2 3.2-4.8 g/dL Plan/Recommendation IMP TORITO superimposed on CKD hemodynamically mediated Hx of CKD stage 3, unknown last GFR +Influenza A- on tamiflu HTN DM type 2- well controlled Hyperkalemia Acute community-acquired bilateral pneumonia- on IV abx REC Lokelma x 1 dose Hold RAAS inhibitors during time course of TORITO Avoidance of nephrotoxins Renal U/S BMP, CBC, phos, TSH, uric acid, urine studies Strict I&O's We will continue to follow Plan discussed with: Patient FOXAKBAR QUINTERO Nov 15, 2024 15:10
[2024-11-15] MEDS: DOXYCYCLINE 100MG/100ML 100 ML IV SCH (16:02)
[2024-11-15 21:27] LABS: INR 1.11 (0.9-1.15); Partial Thromboplastin Time 45.8 SEC (24.5-34.5); Prothrombin Time 11.6 sec (9.3-11.8)
--- NOTE | 2024-11-15 23:26 | DVHPN2 ---
Consult Progress Note Subjective Other Systems: Patient was seen and evaluated in follow up. No cardiac events reported. Family meeting is planned for tomorrow. K 5.3, CL 110, BUN 47, TRANSISTOR TESTER 1.98, AST 171, ALT 246. Telemetry reviewed. Objective vital signs Vital Sign Date Time Temp Pulse Resp B/P (MAP) Pulse Ox O2 Delivery O2 Flow Rate FiO2 11/15/24 13:00 98.6 66 20 115/63 (80) 97 98.6 11/15/24 08:00 Room Air* 0 21 Total Intake and Output 11/14/24 11/14/24 11/15/24 15:00 23:00 07:00 Intake Total 50 ml 0 ml 360 ml Output Total 825 ml Balance 50 ml 0 ml -465 ml medications Current Medications Medications Dose Ordered Sig/Richard Route Start Time Stop Time Status Last Admin Dose Admin Oseltamivir Phosphate 30 mg DAILY PO 11/14/24 10:00 11/19/24 09:59 11/15/24 10:16 30 MG Furosemide 20 mg BIDD PO 11/14/24 10:00 11/15/24 06:01 20 MG Metoprolol Tartrate 25 mg DAILY PO 11/14/24 10:00 11/15/24 10:17 25 MG Spironolactone 25 mg BID PO 11/14/24 10:00 11/15/24 10:17 25 MG Isosorbide Dinitrate 30 mg DAILY PO 11/14/24 10:00 11/15/24 10:16 30 MG Pantoprazole Sodium 40 mg DAILY@0700 PO 11/14/24 09:27 11/15/24 06:01 40 MG Pregabalin 100 mg BID PO 11/14/24 10:00 11/15/24 10:15 100 MG Atorvastatin Calcium 10 mg HS PO 11/14/24 22:00 11/14/24 21:25 10 MG Clonidine HCl 0.2 mg BID PO 11/14/24 10:00 11/14/24 22:26 0.2 MG Acetaminophen/ Hydrocodone Bitart 1 tab Q4HP PRN PO 11/14/24 09:00 11/15/24 00:20 1 TAB Ondansetron HCl 4 mg Q4HP PRN IV 11/14/24 09:00 Acetaminophen 650 mg Q6HP PRN PO 11/14/24 09:00 Nitroglycerin 0.4 mg Q5MINP PRN SL 11/14/24 09:00 Morphine Sulfate 2 mg Q30M PRN IV 11/14/24 09:00 Ceftriaxone Sodium 50 ml @ 100 mls/hr DAILY@09 IV 11/14/24 09:00 11/15/24 09:20 100 MLS/HR Diagnostic Test (Pha) 1 strip Q6HR 11/14/24 12:00 11/15/24 13:28 1 STRIP Insulin Human Regular Q6HR SC 11/14/24 12:00 11/15/24 13:45 3 UNITS Dextrose 50 ml UD PRN IV 11/14/24 09:00 Heparin Sodium/ Dextrose 250 ml @ 5 mls/hr Q24H IV 11/15/24 13:15 11/15/24 13:29 5 MLS/HR Doxycycline Hyclate 100 ml @ 50 mls/hr Q12HR IV 11/15/24 13:45 11/15/24 16:02 50 MLS/HR Examination: GENERAL:Normal, LUNGS:Normal, CVS:Normal, ABDOMEN:Normal laboratory and microbiology Laboratory Tests 11/15/24 02:49 Test 11/15/24 02:49 Range/Units Serum Glucose 190 H 74-106 mg/dL Problem List/Assessment/Plan Problem List/Assessment/Plan Assessment NSTEMI rule out type 1. Possible cardiorenal syndrome. Possible acute on chronic CHF exacerbation. Elevated D-dimer - rule out PE. Acute respiratory failure likely 2/2 Influenza A and Pneumonia. Transaminitis. Hypertension. TORITO and CKD 4. Diabetes type 2. Hyperlipidemia. Obesity. Plan/Recommendation Continued all current supportive medical care. Patient has been seen by Ximena Chase NP on my behalf, her and I discussed the plan with the patient. Echocardiogram reveals EF 65%. DC heparin drip once V/Q scan is completed. Lipid lowering agent when appropriate given elevated AST and ALT. V/Q scan. Troponin downtrending, likely cardiorenal syndrome, however patient may benefit for ischemic workup in an out-pt setting. Additional plan as per the hospital course. Plan discussed with: Patient Date of Service: Nov 15, 2024 Billing Provider: ERIN MCNAMARA MD Cardiology Common Codes: [id number] INP/OBS CARE(Mod) Cardiology Consultation Codes: [id number] CONSULT <45MIN ERIN MCNAMARA MD Nov 15, 2024 16:41
[2024-11-16] VITALS (8 sets, daily range): BP systolic 92–131; BP diastolic 46–70; PULSE 61–77; RESP 15–18; TEMP 97.4–98.4; O2SAT 93–100
[2024-11-16] MEDS: HEPARIN SODIUM (PORCINE) 5000 UNITS/ML 1ML VIAL IV ONE
[2024-11-16] MEDS ORDERED: AZITHROMYCIN 500MG/ 250ML 250 ML IV SCH (10:00)
[2024-11-16 10:28] LABS: Potassium 4.7 mmol/L (3.5-5.1); Sodium 136 mmol/L (136-145)
[2024-11-16 10:29] LABS: Anion Gap 11 (5-15)
[2024-11-16 10:30] LABS: Calcium 9.6 mg/dL (8.7-10.4)
[2024-11-16 10:33] LABS: Basophils # (auto) 0 10 ^3/uL (0-0.2); Basophils % (auto) 0.6 % (0.0-2.0); Eosinophils # (auto) 0.1 10 ^3/uL (0-0.8); Eosinophils % (auto) 1.1 % (0.0-7.0); Hematocrit 40.6 % (36.0-46.0); Hemoglobin 13.7 g/dL (12.2-16.2); Lymphocytes # (auto) 2.7 10 ^3/uL (0.4-5.4); Lymphocytes % (auto) 42.4 % (10.0-50.0); Mean Corpuscular Hemoglobin 29.7 pg (28.0-32.0); Mean Corpuscular Hgb Conc. 33.8 g/dL (32.0-36.0); Monocytes # (auto) 0.6 10 ^3/uL (0-1.3); Monocytes % (auto) 8.9 % (0.0-12.0); Nucleated Red Blood Cells % 0.3 %; Platelet Count (auto) 117 10^3/uL (140-450); Red Blood Cells 4.62 10^6/uL (4.0-5.20); Red Cell Distribution Width 14.2 % (11.8-14.3); White Blood Cell 6.3 10^3/uL (4.4-10.8)
[2024-11-16 10:34] LABS: Uric Acid 7.3 mg/dL (3.1-7.8)
[2024-11-16 10:35] LABS: BUN/Creatinine Ratio 17.7 (10.0-20.0)
[2024-11-16 10:39] LABS: Blood Urea Nitrogen 31 mg/dL (9-23); Carbon Dioxide 17 mmol/L (20-31); Chloride 108 mmol/L (98-107); Glucose 233 mg/dL (74-106)
[2024-11-16 11:09] LABS: INR 1.11 (0.9-1.15); Partial Thromboplastin Time 68.7 SEC (24.5-34.5); Prothrombin Time 11.6 sec (9.3-11.8)
--- NOTE | 2024-11-16 12:44 | DVHPN2 ---
Progress Note Date Seen: Nov 16, 2024 Medical Necessity Reason Pt with a Central, PICC or Fol: No Subjective Patient reports: Feels better Review of Systems: RESPIRATORY:Abnormal Objective vital signs Vital Sign Date Time Temp Pulse Resp B/P (MAP) Pulse Ox O2 Delivery O2 Flow Rate FiO2 11/16/24 10:01 130/70 11/16/24 10:00 95 11/16/24 08:55 98.0 18 95 98.0 11/15/24 20:00 Room Air* 0 21 Total Intake and Output 11/15/24 11/15/24 11/16/24 15:00 23:00 07:00 Intake Total 850 ml 2400 ml 600 ml Output Total 600 ml Balance 850 ml 1800 ml 600 ml medications Current Medications Medications Dose Ordered Sig/Richard Route Start Time Stop Time Status Last Admin Dose Admin Oseltamivir Phosphate 30 mg DAILY PO 11/14/24 10:00 11/19/24 09:59 11/16/24 10:01 30 MG Furosemide 20 mg BIDD PO 11/14/24 10:00 11/16/24 05:24 20 MG Metoprolol Tartrate 25 mg DAILY PO 11/14/24 10:00 11/16/24 10:00 25 MG Spironolactone 25 mg BID PO 11/14/24 10:00 11/16/24 10:00 25 MG Isosorbide Dinitrate 30 mg DAILY PO 11/14/24 10:00 11/16/24 10:01 30 MG Pantoprazole Sodium 40 mg DAILY@0700 PO 11/14/24 09:27 11/16/24 05:24 40 MG Pregabalin 100 mg BID PO 11/14/24 10:00 11/16/24 10:01 100 MG Atorvastatin Calcium 10 mg HS PO 11/14/24 22:00 11/15/24 21:04 10 MG Clonidine HCl 0.2 mg BID PO 11/14/24 10:00 11/16/24 10:01 0.2 MG Acetaminophen/ Hydrocodone Bitart 1 tab Q4HP PRN PO 11/14/24 09:00 11/15/24 21:04 1 TAB Ondansetron HCl 4 mg Q4HP PRN IV 11/14/24 09:00 Acetaminophen 650 mg Q6HP PRN PO 11/14/24 09:00 Nitroglycerin 0.4 mg Q5MINP PRN SL 4/19/25 09:00 Morphine Sulfate 2 mg Q30M PRN IV 11/14/24 09:00 Ceftriaxone Sodium 50 ml @ 100 mls/hr DAILY@09 IV 11/14/24 09:00 11/16/24 10:00 100 MLS/HR Diagnostic Test (Pha) 1 strip Q6HR 11/14/24 12:00 11/16/24 11:45 1 STRIP Insulin Human Regular Q6HR SC 11/14/24 12:00 11/16/24 11:45 3 UNITS Dextrose 50 ml UD PRN IV 11/14/24 09:00 Doxycycline Hyclate 100 ml @ 50 mls/hr Q12HR IV 11/15/24 13:45 11/16/24 11:15 50 MLS/HR Heparin Sodium/ Dextrose 250 ml @ 7 mls/hr Q24H IV 11/15/24 22:30 11/15/24 22:56 7 MLS/HR Examination: GENERAL:Normal, CVS:Normal, ABDOMEN:Normal laboratory and microbiology Laboratory Tests 11/16/24 09:50 Test 11/16/24 09:50 Range/Units Serum Glucose 233 H 74-106 mg/dL Microbiology Date/Time Source Procedure Growth Status 11/13/24 23:47 Blood Blood Culture - Preliminary NO GROWTH AFTER 48 HOURS OF INCUBATION. 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
--- NOTE | 2024-11-16 13:21 | DVHPN2 ---
Reviewed: Care Plan, H&P, Labs, Medications, Previous Orders, Radiology Changes from previous H/P or p: No Changes Respiratory: Cough Objective Vitals Vital Signs Date Time Temp Pulse Resp B/P (MAP) Pulse Ox O2 Delivery O2 Flow Rate FiO2 11/16/24 10:01 130/70 11/16/24 10:00 95 11/16/24 08:55 98.0 18 95 98.0 11/15/24 20:00 Room Air* 0 21 Intake/Output Intake and Output 11/16/24 07:00 Intake Total 3850 ml Output Total 600 ml Balance 3250 ml Intake Oral 1600 ml IV Total 2250 ml Output Urine Total 600 ml # Voids 4 # Bowel Movements 3 Medications Current Medications Medications Dose Ordered Sig/Richard Route Start Time Stop Time Status Last Admin Dose Admin Oseltamivir Phosphate 30 mg DAILY PO 11/14/24 10:00 11/19/24 09:59 11/16/24 10:01 30 MG Furosemide 20 mg BIDD PO 11/14/24 10:00 11/16/24 05:24 20 MG Metoprolol Tartrate 25 mg DAILY PO 11/14/24 10:00 11/16/24 10:00 25 MG Spironolactone 25 mg BID PO 11/14/24 10:00 11/16/24 10:00 25 MG Isosorbide Dinitrate 30 mg DAILY PO 11/14/24 10:00 11/16/24 10:01 30 MG Pantoprazole Sodium 40 mg DAILY@0700 PO 11/14/24 09:27 11/16/24 05:24 40 MG Pregabalin 100 mg BID PO 11/14/24 10:00 11/16/24 10:01 100 MG Atorvastatin Calcium 10 mg HS PO 11/14/24 22:00 11/15/24 21:04 10 MG Clonidine HCl 0.2 mg BID PO 11/14/24 10:00 11/16/24 10:01 0.2 MG Acetaminophen/ Hydrocodone Bitart 1 tab Q4HP PRN PO 11/14/24 09:00 11/15/24 21:04 1 TAB Ondansetron HCl 4 mg Q4HP PRN IV 11/14/24 09:00 Acetaminophen 650 mg Q6HP PRN PO 11/14/24 09:00 Nitroglycerin 0.4 mg Q5MINP PRN SL 11/14/24 09:00 Morphine Sulfate 2 mg Q30M PRN IV 11/14/24 09:00 Ceftriaxone Sodium 50 ml @ 100 mls/hr DAILY@09 IV 11/14/24 09:00 11/16/24 10:00 100 MLS/HR Diagnostic Test (Pha) 1 strip Q6HR 11/14/24 12:00 11/16/24 11:45 1 STRIP Insulin Human Regular Q6HR SC 11/14/24 12:00 11/16/24 11:45 3 UNITS Dextrose 50 ml UD PRN IV 11/14/24 09:00 Doxycycline Hyclate 100 ml @ 50 mls/hr Q12HR IV 11/15/24 13:45 11/16/24 11:15 50 MLS/HR Heparin Sodium/ Dextrose 250 ml @ 7 mls/hr Q24H IV 11/15/24 22:30 11/15/24 22:56 7 MLS/HR Laboratory Results Laboratory Tests 11/16/24 09:50 Chemistry Test 11/16/24 09:50 Calcium Level 9.6 mg/dL (8.7-10.4) Phosphorus Level 3.0 mg/dL (2.4-5.1) Coagulation Test 11/15/24 20:56 11/16/24 09:50 Prothrombin Time 11.6 sec (9.3-11.8) 11.6 sec (9.3-11.8) Prothrombin Time INR 1.11 (0.9-1.15) 1.11 (0.9-1.15) Activated Partial Thromboplast Time 45.8 SEC (24.5-34.5) H 68.7 SEC (24.5-34.5) H HgA1c, TSH Test 11/16/24 09:50 Thyroid Stimulating Hormone (TSH) 1.43 uIU/mL (0.55-4.78) Microbiology Microbiology Date/Time Source Procedure Growth Status 11/13/24 23:47 Blood Blood Culture - Preliminary NO GROWTH AFTER 48 HOURS OF INCUBATION. Resulted Labs and/or images reviewed: Labs reviewed by me, Image(s) reviewed by me Assessment/Plan Assessment/Plan Acute Hypoxic respiratory failure: Oxygen by nasal cannula Acute generalized weakness Type a flu: Tamiflu Acute community-acquired bilateral pneumonia: Rocephin azithromycin Acute on chronic congestive heart failure: Lasix spironolactone Hypotension: Metoprolol Hypercholesterolemia: Lipitor Non ST-elevation [place] troponin 1.6 K: Heparin, consult by Dr. Timo Mulligan appreciated Diabetes: Insulin sliding scale Spinal stenosis Cholelithiasis CKD 5: Nephrology consult D-dimer 1.07 V/Q scan ordered to rule out PE Time spent 70 minutes Patient is full code Advanced care planning time 20 mts Max [phone] at bedside Plan discussed with: Patient My Orders Orders - KENYETTA LIU MD Procedure Category Date Status Time Doxycycline PHA 11/15/24 In Process 100mg/100ml 13:45 Date of Service: Nov 16, 2024 Billing Provider: KENYETTA LIU MD Common Visit Codes: [id number] INP/OBS CARE(HIGH) KENYETTA LIU MD Nov 16, 2024 13:21
[2024-11-16] MEDS: ACETAMINOPHEN 325 MG TAB PO PRN (14:41)
[2024-11-16 17:21] LABS: INR 1.09 (0.9-1.15); Partial Thromboplastin Time 58.6 SEC (24.5-34.5); Prothrombin Time 11.5 sec (9.3-11.8)
[2024-11-16 23:26] LABS: INR 1.11 (0.9-1.15); Partial Thromboplastin Time 34.5 SEC (24.5-34.5); Prothrombin Time 11.6 sec (9.3-11.8)
--- NOTE | 2024-11-16 23:38 | DVHPN2 ---
Progress Note - Dictate Date Seen: Nov 16, 2024 Medical Necessity Reason Pt with a Central, PICC or Fol: No Subjective Patient was seen and evaluated in follow up. No overnight events. Patient is on room air. VQ scan is ordered. Patient remains on heparin drip. CO2 17, BUN 311, Neurophysiological Technician 1.75. TSH is WNL. Telemetry reviewed. vital signs Vital Sign Date Time Temp Pulse Resp B/P (MAP) Pulse Ox O2 Delivery O2 Flow Rate FiO2 11/16/24 22:38 107/46 11/16/24 21:00 97.6 63 15 97 97.6 11/16/24 20:00 Room Air* 0 21 Total Intake and Output 11/15/24 11/15/24 11/16/24 15:00 23:00 07:00 Intake Total 850 ml 2400 ml 600 ml Output Total 600 ml Balance 850 ml 1800 ml 600 ml medications Current Medications Medications Dose Ordered Sig/Richard Route Start Time Stop Time Status Last Admin Dose Admin Oseltamivir Phosphate 30 mg DAILY PO 11/14/24 10:00 11/19/24 09:59 11/16/24 10:01 30 MG Furosemide 20 mg BIDD PO 11/14/24 10:00 11/16/24 05:24 20 MG Metoprolol Tartrate 25 mg DAILY PO 11/14/24 10:00 11/16/24 10:00 25 MG Spironolactone 25 mg BID PO 11/14/24 10:00 11/16/24 22:36 25 MG Isosorbide Dinitrate 30 mg DAILY PO 11/14/24 10:00 11/16/24 10:01 30 MG Pantoprazole Sodium 40 mg DAILY@0700 PO 11/14/24 09:27 11/16/24 05:24 40 MG Pregabalin 100 mg BID PO 11/14/24 10:00 11/16/24 22:37 100 MG Atorvastatin Calcium 10 mg HS PO 11/14/24 22:00 11/16/24 22:36 10 MG Clonidine HCl 0.2 mg BID PO 11/14/24 10:00 11/16/24 22:38 0.2 MG Acetaminophen/ Hydrocodone Bitart 1 tab Q4HP PRN PO 11/14/24 09:00 11/15/24 21:04 1 TAB Ondansetron HCl 4 mg Q4HP PRN IV 11/14/24 09:00 Acetaminophen 650 mg Q6HP PRN PO 11/14/24 09:00 11/16/24 14:41 650 MG Nitroglycerin 0.4 mg Q5MINP PRN SL 11/14/24 09:00 Morphine Sulfate 2 mg Q30M PRN IV 11/14/24 09:00 Ceftriaxone Sodium 50 ml @ 100 mls/hr DAILY@09 IV 11/14/24 09:00 11/16/24 10:00 100 MLS/HR Diagnostic Test (Pha) 1 strip Q6HR 11/14/24 12:00 11/16/24 18:00 1 STRIP Insulin Human Regular Q6HR SC 11/14/24 12:00 11/16/24 11:45 3 UNITS Dextrose 50 ml UD PRN IV 11/14/24 09:00 Doxycycline Hyclate 100 ml @ 50 mls/hr Q12HR IV 11/15/24 13:45 11/16/24 22:36 50 MLS/HR Heparin Sodium/ Dextrose 250 ml @ 7 mls/hr Q24H IV 11/15/24 22:30 11/15/24 22:56 7 MLS/HR objective GENERAL: Alert and oriented x 3. No acute distress. EYES: PERRL, EOMI. Anicteric. HENT: Moist mucous membranes. LUNGS: Clear to auscultation bilaterally. CARDIOVASCULAR: Regular rate and rhythm. ABDOMEN: Soft, non-tender and non-distended. EXTREMITIES: No edema. NEUROLOGIC: No focal neurological deficits. SKIN: Warm, dry. laboratory and microbiology Laboratory Tests 11/16/24 09:50 Test 11/16/24 09:50 Range/Units Serum Glucose 233 H 74-106 mg/dL Problem List NSTEMI rule out type 1. Possible cardiorenal syndrome. Possible acute on chronic CHF exacerbation. Elevated D-dimer - rule out PE. Acute respiratory failure likely 2/2 Influenza A and Pneumonia. Transaminitis. Hypertension. TORITO and CKD 4. Diabetes type 2. Hyperlipidemia. Obesity. Assessment/Plan Continued all current supportive medical care. Echocardiogram reveals EF 65%. Morphine and [place] for pain management. Lipitor, Metoprolol. IV antibiotics as ordered. Clonidine. Diuretics with Lasix. Heparin drip per pharmacy. GI prophylactics. Additional plan as per the hospital course. Plan discussed with: Patient ERIN MCNAMARA MD Nov 16, 2024 23:38
[2024-11-17] MEDS: HEPARIN SODIUM (PORCINE) 5000 UNITS/ML 1ML VIAL IV ONE (00:30)
[2024-11-17] MEDS: HEPARIN DRIP/D5W 100UNITS/ML 250 ML IV SCH (00:38)
[2024-11-17 05:00] VITALS: BP 101/53; PULSE 65; RESP 16; TEMP 97.7; O2SAT 100
[2024-11-17 08:00] VITALS: PULSE 63
[2024-11-17 09:00] VITALS: BP 102/60; PULSE 67; RESP 20; TEMP 97.5; O2SAT 98
--- NOTE | 2024-11-17 09:47 | DVHPN2 ---
Progress Note Date Seen: Nov 17, 2024 Medical Necessity Reason Pt with a Central, PICC or Fol: No Subjective Patient reports: Feels better Review of Systems: CVS:Normal Objective vital signs Vital Sign Date Time Temp Pulse Resp B/P (MAP) Pulse Ox O2 Delivery O2 Flow Rate FiO2 11/17/24 09:24 102/60 11/17/24 09:24 67 11/17/24 05:00 97.7 16 100 97.7 11/16/24 20:00 Room Air* 0 21 Total Intake and Output 11/16/24 11/16/24 11/17/24 15:00 23:00 07:00 Intake Total 50 ml 1050 ml 500 ml Output Total 450 ml Balance 50 ml 1050 ml 50 ml medications Current Medications Medications Dose Ordered Sig/Richard Route Start Time Stop Time Status Last Admin Dose Admin Oseltamivir Phosphate 30 mg DAILY PO 11/14/24 10:00 11/19/24 09:59 11/17/24 09:23 30 MG Furosemide 20 mg BIDD PO 11/14/24 10:00 11/17/24 05:26 20 MG Metoprolol Tartrate 25 mg DAILY PO 11/14/24 10:00 11/17/24 09:24 25 MG Spironolactone 25 mg BID PO 11/14/24 10:00 11/17/24 09:23 25 MG Isosorbide Dinitrate 30 mg DAILY PO 11/14/24 10:00 11/17/24 09:23 30 MG Pantoprazole Sodium 40 mg DAILY@0700 PO 11/14/24 09:27 11/17/24 05:26 40 MG Pregabalin 100 mg BID PO 11/14/24 10:00 11/17/24 09:22 100 MG Atorvastatin Calcium 10 mg HS PO 11/14/24 22:00 11/16/24 22:36 10 MG Clonidine HCl 0.2 mg BID PO 11/14/24 10:00 11/17/24 09:24 0.2 MG Acetaminophen/ Hydrocodone Bitart 1 tab Q4HP PRN PO 11/14/24 09:00 11/15/24 21:04 1 TAB Ondansetron HCl 4 mg Q4HP PRN IV 11/14/24 09:00 Acetaminophen 650 mg Q6HP PRN PO 11/14/24 09:00 11/16/24 14:41 650 MG Nitroglycerin 0.4 mg Q5MINP PRN SL 11/14/24 09:00 Morphine Sulfate 2 mg Q30M PRN IV 11/14/24 09:00 Ceftriaxone Sodium 50 ml @ 100 mls/hr DAILY@09 IV 11/14/24 09:00 11/17/24 09:10 100 MLS/HR Diagnostic Test (Pha) 1 strip Q6HR 11/14/24 12:00 11/17/24 05:32 1 STRIP Insulin Human Regular Q6HR SC 11/14/24 12:00 11/17/24 00:51 2 UNITS Dextrose 50 ml UD PRN IV 11/14/24 09:00 Doxycycline Hyclate 100 ml @ 50 mls/hr Q12HR IV 11/15/24 13:45 11/16/24 22:36 50 MLS/HR Heparin Sodium/ Dextrose 250 ml @ 10 mls/hr Q24H IV 11/16/24 23:45 11/17/24 00:38 10 MLS/HR Examination: GENERAL:Normal, CVS:Normal laboratory and microbiology Laboratory Tests 11/16/24 09:50 Test 11/16/24 09:50 Range/Units Serum Glucose 233 H 74-106 mg/dL Microbiology Date/Time Source Procedure Growth Status 11/15/24 18:40 Blood Blood Culture - Preliminary NO GROWTH AFTER 24 HOURS OF INCUBATION. 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
[2024-11-17 10:49] LABS: Basophils # (auto) 0 10 ^3/uL (0-0.2); Basophils % (auto) 0.4 % (0.0-2.0); Eosinophils # (auto) 0.2 10 ^3/uL (0-0.8); Eosinophils % (auto) 2.3 % (0.0-7.0); Lymphocytes # (auto) 3.2 10 ^3/uL (0.4-5.4); Lymphocytes % (auto) 46.4 % (10.0-50.0); Mean Corpuscular Hgb Conc. 33.2 g/dL (32.0-36.0); Mean Corpuscular Volume 90.1 fL (80.0-100.0); Monocytes # (auto) 0.5 10 ^3/uL (0-1.3); Neutrophils % (auto) 43.9 % (37.0-80.0); Nucleated Red Blood Cells % 0.1 %; Platelet Count (auto) 118 10^3/uL (140-450); Red Cell Distribution Width 14.3 % (11.8-14.3); White Blood Cell 6.9 10^3/uL (4.4-10.8)
[2024-11-17 10:59] LABS: Anion Gap 10 (5-15); Potassium 4.5 mmol/L (3.5-5.1)
[2024-11-17 11:00] LABS: Calcium 8.7 mg/dL (8.7-10.4)
[2024-11-17 11:01] LABS: Carbon Dioxide 17 mmol/L (20-31); Chloride 108 mmol/L (98-107); Sodium 135 mmol/L (136-145)
[2024-11-17 11:05] LABS: BUN/Creatinine Ratio 16.9 (10.0-20.0); Blood Urea Nitrogen 31 mg/dL (9-23); Glucose 230 mg/dL (74-106)
--- NOTE | 2024-11-17 11:42 | DVHPN2 ---
Reviewed: Care Plan, H&P, Labs, Medications, Previous Orders, Radiology Changes from previous H/P or p: No Changes Respiratory: Cough Objective Vitals Vital Signs Date Time Temp Pulse Resp B/P (MAP) Pulse Ox O2 Delivery O2 Flow Rate FiO2 11/17/24 09:24 102/60 11/17/24 09:24 67 11/17/24 09:00 97.5 20 98 97.5 11/17/24 08:00 Room Air* 0 21 Intake/Output Intake and Output 11/17/24 07:00 Intake Total 1600 ml Output Total 450 ml Balance 1150 ml Intake Oral 1410 ml IV Total 190 ml Output Urine Total 450 ml # Voids 2 Medications Current Medications Medications Dose Ordered Sig/Richard Route Start Time Stop Time Status Last Admin Dose Admin Oseltamivir Phosphate 30 mg DAILY PO 11/14/24 10:00 11/19/24 09:59 11/17/24 09:23 30 MG Furosemide 20 mg BIDD PO 11/14/24 10:00 11/17/24 05:26 20 MG Metoprolol Tartrate 25 mg DAILY PO 11/14/24 10:00 11/17/24 09:24 25 MG Spironolactone 25 mg BID PO 11/14/24 10:00 11/17/24 09:23 25 MG Isosorbide Dinitrate 30 mg DAILY PO 11/14/24 10:00 11/17/24 09:23 30 MG Pantoprazole Sodium 40 mg DAILY@0700 PO 11/14/24 09:27 11/17/24 05:26 40 MG Pregabalin 100 mg BID PO 11/14/24 10:00 11/17/24 09:22 100 MG Atorvastatin Calcium 10 mg HS PO 11/14/24 22:00 11/16/24 22:36 10 MG Clonidine HCl 0.2 mg BID PO 11/14/24 10:00 11/17/24 09:24 0.2 MG Acetaminophen/ Hydrocodone Bitart 1 tab Q4HP PRN PO 11/14/24 09:00 11/15/24 21:04 1 TAB Ondansetron HCl 4 mg Q4HP PRN IV 11/14/24 09:00 Acetaminophen 650 mg Q6HP PRN PO 11/14/24 09:00 11/16/24 14:41 650 MG Nitroglycerin 0.4 mg Q5MINP PRN SL 11/14/24 09:00 Morphine Sulfate 2 mg Q30M PRN IV 11/14/24 09:00 Ceftriaxone Sodium 50 ml @ 100 mls/hr DAILY@09 IV 11/14/24 09:00 11/17/24 09:10 100 MLS/HR Diagnostic Test (Pha) 1 strip Q6HR 11/14/24 12:00 11/17/24 05:32 1 STRIP Insulin Human Regular Q6HR SC 11/14/24 12:00 11/17/24 00:51 2 UNITS Dextrose 50 ml UD PRN IV 11/14/24 09:00 Doxycycline Hyclate 100 ml @ 50 mls/hr Q12HR IV 11/15/24 13:45 11/17/24 10:58 50 MLS/HR Heparin Sodium/ Dextrose 250 ml @ 10 mls/hr Q24H IV 11/16/24 23:45 11/17/24 00:38 10 MLS/HR Laboratory Results Laboratory Tests 11/17/24 10:16 Chemistry Test 11/17/24 10:16 Calcium Level 8.7 mg/dL (8.7-10.4) Coagulation Test 11/16/24 16:45 11/16/24 23:00 Prothrombin Time 11.5 sec (9.3-11.8) 11.6 sec (9.3-11.8) Prothrombin Time INR 1.09 (0.9-1.15) 1.11 (0.9-1.15) Activated Partial Thromboplast Time 58.6 SEC (24.5-34.5) H 34.5 SEC (24.5-34.5) Microbiology Microbiology Date/Time Source Procedure Growth Status 11/15/24 18:40 Blood Blood Culture - Preliminary NO GROWTH AFTER 24 HOURS OF INCUBATION. Resulted Labs and/or images reviewed: Labs reviewed by me, Image(s) reviewed by me Assessment/Plan Assessment/Plan Acute Hypoxic respiratory failure: Oxygen by nasal cannula Acute generalized weakness Type a flu: Tamiflu Acute community-acquired bilateral pneumonia: Rocephin azithromycin Acute on chronic congestive heart failure: Lasix spironolactone Hypotension: Metoprolol Hypercholesterolemia: Lipitor Non ST-elevation [place] troponin 1.6 K: Heparin, consult by Dr. iTmo Mulligan appreciated Diabetes: Insulin sliding scale Spinal stenosis Cholelithiasis CKD 5: Nephrology consult D-dimer 1.07 V/Q scan ordered to rule out PE which is being done today Time spent 70 minutes Patient is full code Advanced care planning time 20 mts Max [phone] at bedside Plan discussed with: Patient Date of Service: Nov 17, 2024 Billing Provider: KENYETTA LIU MD Common Visit Codes: [id number] INP/OBS CARE(HIGH) KENYETTA LIU MD Nov 17, 2024 11:42
--- NOTE | 2024-11-17 12:28 | DVH ---
NUCLEAR MEDICINE PERFUSION LUNG SCAN. INDICATION: PULMONARY EMBOLISM TECHNIQUE: Following intravenous demonstration of 6 millicuries of technetium 99m MAA, multiple pr ojections of the lungs. FINDINGS: There is normal uptake of radionuclide on perfusion portions of the examination. No perfusion defect s are demonstrated. Uptake is normally homogeneous. IMPRESSION: Low probability for PE.
[2024-11-17 13:30] VITALS: BP 92/52; PULSE 61; TEMP 97.7; O2SAT 97
[2024-11-17 13:58] LABS: INR 1.08 (0.9-1.15); Partial Thromboplastin Time 42.3 SEC (24.5-34.5); Prothrombin Time 11.4 sec (9.3-11.8)
[2024-11-17 20:00] VITALS: PULSE 67; PULSE 68; RESP 18; O2SAT 98
[2024-11-17 21:00] VITALS: BP 101/53; PULSE 67; RESP 18; TEMP 98.4; O2SAT 18
--- NOTE | 2024-11-17 22:35 | DVHPN2 ---
Progress Note - Dictate Date Seen: Nov 17, 2024 Medical Necessity Reason Pt with a Central, PICC or Fol: No Subjective Patient was seen and evaluated in follow up. No overnight events. Patient is resting in bed. Heparin drip was discontinued. Prelim blood cultures show no growth. CBC is unremarkable. CO2 17, BUN 31, Pre Press Manager 1.83. Telemetry reviewed. vital signs Vital Sign Date Time Temp Pulse Resp B/P (MAP) Pulse Ox O2 Delivery O2 Flow Rate FiO2 11/17/24 21:04 101/53 11/17/24 13:30 97.7 61 97 97.7 11/17/24 09:00 20 11/17/24 08:00 Room Air* 0 21 Total Intake and Output 11/16/24 11/16/24 11/17/24 15:00 23:00 07:00 Intake Total 50 ml 1050 ml 500 ml Output Total 450 ml Balance 50 ml 1050 ml 50 ml medications Current Medications Medications Dose Ordered Sig/Richard Route Start Time Stop Time Status Last Admin Dose Admin Oseltamivir Phosphate 30 mg DAILY PO 11/14/24 10:00 11/19/24 09:59 11/17/24 09:23 30 MG Furosemide 20 mg BIDD PO 11/14/24 10:00 11/17/24 17:54 20 MG Metoprolol Tartrate 25 mg DAILY PO 11/14/24 10:00 11/17/24 09:24 25 MG Spironolactone 25 mg BID PO 11/14/24 10:00 11/17/24 21:03 25 MG Isosorbide Dinitrate 30 mg DAILY PO 11/14/24 10:00 11/17/24 09:23 30 MG Pantoprazole Sodium 40 mg DAILY@0700 PO 11/14/24 09:27 11/17/24 05:26 40 MG Pregabalin 100 mg BID PO 11/14/24 10:00 11/17/24 21:04 100 MG Atorvastatin Calcium 10 mg HS PO 11/14/24 22:00 11/17/24 21:05 10 MG Clonidine HCl 0.2 mg BID PO 11/14/24 10:00 11/17/24 21:04 0.2 MG Acetaminophen/ Hydrocodone Bitart 1 tab Q4HP PRN PO 11/14/24 09:00 11/15/24 21:04 1 TAB Ondansetron HCl 4 mg Q4HP PRN IV 11/14/24 09:00 Acetaminophen 650 mg Q6HP PRN PO 11/14/24 09:00 11/16/24 14:41 650 MG Nitroglycerin 0.4 mg Q5MINP PRN SL 11/14/24 09:00 Morphine Sulfate 2 mg Q30M PRN IV 11/14/24 09:00 Ceftriaxone Sodium 50 ml @ 100 mls/hr DAILY@09 IV 11/14/24 09:00 11/17/24 09:10 100 MLS/HR Diagnostic Test (Pha) 1 strip Q6HR 11/14/24 12:00 11/17/24 17:55 1 STRIP Insulin Human Regular Q6HR SC 11/14/24 12:00 11/17/24 17:55 3 UNITS Dextrose 50 ml UD PRN IV 11/14/24 09:00 Doxycycline Hyclate 100 ml @ 50 mls/hr Q12HR IV 11/15/24 13:45 11/17/24 21:07 50 MLS/HR objective GENERAL: Alert and oriented x 3. No acute distress. EYES: PERRL, EOMI. Anicteric. HENT: Moist mucous membranes. LUNGS: Clear to auscultation bilaterally. CARDIOVASCULAR: Regular rate and rhythm. ABDOMEN: Soft, non-tender and non-distended. EXTREMITIES: No edema. NEUROLOGIC: No focal neurological deficits. SKIN: Warm, dry. laboratory and microbiology Laboratory Tests 11/17/24 10:16 Test 11/17/24 10:16 Range/Units Serum Glucose 230 H 74-106 mg/dL Problem List NSTEMI rule out type 1. Possible cardiorenal syndrome. Possible acute on chronic CHF exacerbation. Elevated D-dimer - rule out PE. Acute respiratory failure likely 2/2 Influenza A and Pneumonia. Transaminitis. Hypertension. TORITO and CKD 4. Diabetes type 2. Hyperlipidemia. Obesity. Assessment/Plan Continued all current supportive medical care. Morphine and [place] for pain management. Lipitor, Metoprolol. IV antibiotics as ordered. Clonidine. Diuretics with Lasix. GI prophylactics. Additional plan as per the hospital course. Dietary Evaluation Review Comments: 1) CCHO 60 +renal specific 60gm 2) Refer CDE on DC 3) Continue current plan of care Expected Outcomes/Goals: To meet >75% estimated needs Fu 3-5 days Plan discussed with: Patient ERIN MCNAMARA MD Nov 17, 2024 21:19
[2024-11-18 05:00] VITALS: BP 124/56; PULSE 74; RESP 18; TEMP 98.8; O2SAT 96
[2024-11-18 07:17] LABS: Basophils # (auto) 0 10 ^3/uL (0-0.2); Basophils % (auto) 0.2 % (0.0-2.0); Eosinophils # (auto) 0.2 10 ^3/uL (0-0.8); Eosinophils % (auto) 2.5 % (0.0-7.0); Hematocrit 37.9 % (36.0-46.0); Hemoglobin 12.4 g/dL (12.2-16.2); Lymphocytes # (auto) 2.6 10 ^3/uL (0.4-5.4); Lymphocytes % (auto) 39.1 % (10.0-50.0); Mean Corpuscular Hgb Conc. 32.8 g/dL (32.0-36.0); Mean Corpuscular Volume 88.7 fL (80.0-100.0); Monocytes # (auto) 0.5 10 ^3/uL (0-1.3); Monocytes % (auto) 8.1 % (0.0-12.0); Neutrophils # (auto) 3.3 10 ^3/uL (1.6-8.6); Neutrophils % (auto) 50.1 % (37.0-80.0); Nucleated Red Blood Cells % 0.1 %; Platelet Count (auto) 120 10^3/uL (140-450); Red Blood Cells 4.28 10^6/uL (4.0-5.20); Red Cell Distribution Width 14.5 % (11.8-14.3); White Blood Cell 6.6 10^3/uL (4.4-10.8)
[2024-11-18 07:28] LABS: Anion Gap 9 (5-15); Carbon Dioxide 21 mmol/L (20-31); Chloride 107 mmol/L (98-107); Sodium 137 mmol/L (136-145)
[2024-11-18 07:29] LABS: Calcium 9.1 mg/dL (8.7-10.4)
[2024-11-18 07:34] LABS: BUN/Creatinine Ratio 17.3 (10.0-20.0)
[2024-11-18 07:40] LABS: Blood Urea Nitrogen 34 mg/dL (9-23); Glucose 141 mg/dL (74-106); Potassium 5.4 mmol/L (3.5-5.1)
[2024-11-18 08:00] VITALS: PULSE 67
[2024-11-18 08:30] VITALS: BP 127/82; PULSE 76; RESP 19; TEMP 98.3; O2SAT 95
--- NOTE | 2024-11-18 09:51 | DVHPN2 ---
Reviewed: Care Plan, H&P, Labs, Medications, Previous Orders, Radiology Changes from previous H/P or p: No Changes Respiratory: Cough Objective Vitals Vital Signs Date Time Temp Pulse Resp B/P (MAP) Pulse Ox O2 Delivery O2 Flow Rate FiO2 11/18/24 09:35 76 127/82 11/18/24 08:30 98.3 19 95 98.3 11/17/24 20:00 Room Air* 0 21 Intake/Output Intake and Output 11/18/24 07:00 Intake Total 1820 ml Output Total 562 ml Balance 1258 ml Intake Oral 1550 ml IV Total 270 ml Output Urine Total 560 ml Stool Total 2 ml # Voids 2 Medications Current Medications Medications Dose Ordered Sig/Richard Route Start Time Stop Time Status Last Admin Dose Admin Oseltamivir Phosphate 30 mg DAILY PO 11/14/24 10:00 11/19/24 09:59 11/18/24 09:34 30 MG Furosemide 20 mg BIDD PO 11/14/24 10:00 11/18/24 05:51 20 MG Metoprolol Tartrate 25 mg DAILY PO 11/14/24 10:00 11/18/24 09:35 25 MG Spironolactone 25 mg BID PO 11/14/24 10:00 11/18/24 09:35 25 MG Isosorbide Dinitrate 30 mg DAILY PO 11/14/24 10:00 11/18/24 09:34 30 MG Pantoprazole Sodium 40 mg DAILY@0700 PO 11/14/24 09:27 11/18/24 05:52 40 MG Pregabalin 100 mg BID PO 11/14/24 10:00 11/18/24 09:33 100 MG Atorvastatin Calcium 10 mg HS PO 11/14/24 22:00 11/17/24 21:05 10 MG Clonidine HCl 0.2 mg BID PO 11/14/24 10:00 11/18/24 09:34 0.2 MG Acetaminophen/ Hydrocodone Bitart 1 tab Q4HP PRN PO 11/14/24 09:00 11/18/24 00:06 1 TAB Ondansetron HCl 4 mg Q4HP PRN IV 11/14/24 09:00 Acetaminophen 650 mg Q6HP PRN PO 11/14/24 09:00 11/16/24 14:41 650 MG Nitroglycerin 0.4 mg Q5MINP PRN SL 11/14/24 09:00 Morphine Sulfate 2 mg Q30M PRN IV 11/14/24 09:00 Ceftriaxone Sodium 50 ml @ 100 mls/hr DAILY@09 IV 11/14/24 09:00 11/18/24 09:29 100 MLS/HR Diagnostic Test (Pha) 1 strip Q6HR 11/14/24 12:00 11/18/24 05:53 1 STRIP Insulin Human Regular Q6HR SC 11/14/24 12:00 11/18/24 05:53 2 UNITS Dextrose 50 ml UD PRN IV 11/14/24 09:00 Doxycycline Hyclate 100 ml @ 50 mls/hr Q12HR IV 11/15/24 13:45 11/18/24 09:29 50 MLS/HR Laboratory Results Laboratory Tests 11/18/24 05:53 Chemistry Test 11/17/24 10:16 11/18/24 05:53 Calcium Level 8.7 mg/dL (8.7-10.4) 9.1 mg/dL (8.7-10.4) Coagulation Test 11/17/24 13:08 Prothrombin Time 11.4 sec (9.3-11.8) Prothrombin Time INR 1.08 (0.9-1.15) Activated Partial Thromboplast Time 42.3 SEC (24.5-34.5) H Microbiology Microbiology Date/Time Source Procedure Growth Status 11/15/24 18:40 Blood Blood Culture - Preliminary NO GROWTH AFTER 48 HOURS OF INCUBATION. Resulted Labs and/or images reviewed: Labs reviewed by me, Image(s) reviewed by me Assessment/Plan Assessment/Plan Acute Hypoxic respiratory failure: Oxygen by nasal cannula Acute generalized weakness Type a flu: Tamiflu Acute community-acquired bilateral pneumonia: Rocephin azithromycin Acute on chronic congestive heart failure: Lasix spironolactone Hypotension: Metoprolol Hypercholesterolemia: Lipitor Non ST-elevation [place] troponin 1.6 K: Heparin, consult by Dr. Timo Mulligan appreciated Diabetes: Insulin sliding scale Spinal stenosis Cholelithiasis CKD 5: Nephrology consult D-dimer 1.07 PE ruled out, heparin discontinued Patient on room air and being discharged home Plan discussed with: Patient Date of Service: Nov 18, 2024 Billing Provider: KENYETTA LIU MD Common Visit Codes: [id number] INP/OBS CARE(HIGH) KENYETTA LIU MD Nov 18, 2024 09:51
[2024-11-18] MEDS ORDERED: DOXY100C79 PO (09:55)
--- NOTE | 2024-11-18 10:02 | DVHDS2 ---
Discharge Summary Date of Admission Nov 14, 2024 at 08:59 Date of Discharge: Nov 18, 2024 Admitting Diagnosis Shortness of breath Wounds: None Labs/Diagnostic Data: Laboratory Results Test 11/18/24 05:53 11/18/24 05:44 11/17/24 13:08 11/16/24 09:50 White Blood Count 6.6 10^3/uL (4.4-10.8) Red Blood Count 4.28 10^6/uL (4.0-5.20) Hemoglobin 12.4 g/dL (12.2-16.2) Hematocrit 37.9 % (36.0-46.0) Mean Corpuscular Volume 88.7 fL (80.0-100.0) Mean Corpuscular Hemoglobin 29.0 pg (28.0-32.0) Mean Corpuscular Hemoglobin Concent 32.8 g/dL (32.0-36.0) Red Cell Distribution Width 14.5 % (11.8-14.3) Platelet Count 120 10^3/uL (140-450) Mean Platelet Volume 10.9 fL (6.9-10.8) Neutrophils (%) (Auto) 50.1 % (37.0-80.0) Lymphocytes (%) (Auto) 39.1 % (10.0-50.0) Monocytes (%) (Auto) 8.1 % (0.0-12.0) Eosinophils (%) (Auto) 2.5 % (0.0-7.0) Basophils (%) (Auto) 0.2 % (0.0-2.0) Neutrophils # (Auto) 3.3 10 ^3/uL (1.6-8.6) Lymphocytes # (Auto) 2.6 10 ^3/uL (0.4-5.4) Monocytes # (Auto) 0.5 10 ^3/uL (0-1.3) Eosinophils # (Auto) 0.2 10 ^3/uL (0-0.8) Basophils # (Auto) 0 10 ^3/uL (0-0.2) Nucleated Red Blood Cells 0.1 % Sodium Level 137 mmol/L (136-145) Potassium Level 5.4 mmol/L (3.5-5.1) Chloride Level 107 mmol/L (98-107) Carbon Dioxide Level 21 mmol/L (20-31) Anion Gap 9 (5-15) Blood Urea Nitrogen 34 mg/dL (9-23) Creatinine 1.97 mg/dL (0.550-1.02) Glomerular Filtration Rate Calc 26 mL/min (>90) BUN/Creatinine Ratio 17.3 (10.0-20.0) Serum Glucose 141 mg/dL (74-106) Calcium Level 9.1 mg/dL (8.7-10.4) POC Glucose 132 mg/dl (70-106) Prothrombin Time 11.4 sec (9.3-11.8) Prothrombin Time INR 1.08 (0.9-1.15) Activated Partial Thromboplast Time 42.3 SEC (24.5-34.5) Uric Acid 7.3 mg/dL (3.1-7.8) Phosphorus Level 3.0 mg/dL (2.4-5.1) Thyroid Stimulating Hormone (TSH) 1.43 uIU/mL (0.55-4.78) Test 11/15/24 02:49 11/14/24 02:35 11/14/24 01:54 11/13/24 23:40 Total Bilirubin 0.4 mg/dL (0.2-1.0) Aspartate Amino Transferase (AST) 171 U/L (13-40) Alanine Aminotransferase (ALT) 246 U/L (7-40) Alkaline Phosphatase 75 U/L (46-116) B-Type Natriuretic Peptide 577.59 pg/mL (0-100) Total Protein 6.9 g/dL (5.7-8.2) Albumin 4.0 g/dL (3.2-4.8) Troponin I High Sensitivity 1314 ng/L (</=34) Triglycerides Level 95 mg/dL (< 150) Cholesterol Level 58 mg/dL (< 200) LDL Cholesterol 20 mg/dL (< 100) HDL Cholesterol 15 mg/dL (40-59) Amylase Level 80 U/L (30-118) Lipase 73 U/L (12-53) Influenza Type A Antigen Positive (Negative) Influenza Type B Antigen Negative (Negative) SARS-CoV-2 Antigen (Rapid) Negative (NEGATIVE) D-Dimer, Quantitative 1.07 mg/L FEU (0.0-0.49) Hemoglobin A1c 6.0 % A1C (<5.7) Lactic Acid Level 1.6 mmol/L (0.4-2.0) Other Laboratory Tests 11/18/24 05:53 Brief Hx & Hospital Course: IV rule out female with a history of hypertension hypercholesterolemia diabetes cholelithiasis CKD five chronic congestive heart failure came in complaining of generalized weakness found to have type a flu treated with the Tamiflu also had bilateral community-acquired pneumonia treated with Rocephin and azithromycin. home medications Lasix spironolactone metoprolol Lipitor continued. D-dimer elevated 1.07 started on heparin PE ruled out by negative V/Q scan, heparin discontinued patient on room air and afebrile at the time of discharge and he is requesting to discharge home. Potassium slightly high 5.4 at the time of discharge given [place] calcium chloride and Lasix I 40 mg IV. Patient has chronic kidney disease stage 3 seen by shipping room helper. Discharged home on doxycycline she will continue all other home medications. I personally reviewed all the home medications Consults/Reason for consult None Operations or Procedures V/Q scan Condition at Discharge: Fair Final Diagnosis/Problems List Acute Hypoxic respiratory failure: Oxygen by nasal cannula Acute generalized weakness Type a flu: Tamiflu Acute community-acquired bilateral pneumonia: Rocephin azithromycin Acute on chronic congestive heart failure: Lasix spironolactone Hypotension: Metoprolol Hypercholesterolemia: Lipitor Non ST-elevation [place] troponin 1.6 K: Heparin, consult by Dr. Timo Mulligan appreciated Diabetes: Insulin sliding scale Spinal stenosis Cholelithiasis CKD 5: Nephrology consult D-dimer 1.07 PE ruled out, heparin discontinued Discharge Disposition: Home Discharge Instruct/Medications Diet: Cardiac 2g Na,low cholest Activity: Light activity Follow Up/Referral: Follow up with the primary Dr Chapa all previous home medications Medications: Doxycycline Transmitted to pharmacy 35 (Time taken for discharge summary 35 minutes) Discharge Statement: "Patient was advised to return to the ER or call 911 if any headaches, dizziness, shortness of breath, chest pain, abdominal pain, bleeding, fevers, or worsening of medical condition. Patient was counseled about treatment plan, medications, possible side effects, patientverbalized understanding. All questions were answered to the best of my ability. This discharge took greater then 30 minutes in planning, reviewing documentation, counseling the patient, and discussing with other team members." ASSESSMENT ASSESSMENT Hospital Course Improved Assessment Acute Hypoxic respiratory failure: Oxygen by nasal cannula Acute generalized weakness Type a flu: Tamiflu Acute community-acquired bilateral pneumonia: Rocephin azithromycin Acute on chronic congestive heart failure: Lasix spironolactone Hypotension: Metoprolol Hypercholesterolemia: Lipitor Non ST-elevation [place] troponin 1.6 K: Heparin, consult by Dr. Timo Mulligan appreciated Diabetes: Insulin sliding scale Spinal stenosis Cholelithiasis CKD 5: Nephrology consult D-dimer 1.07 PE ruled out, heparin discontinued Date of Service: Nov 18, 2024 Billing Provider: KENYETTA LIU MD Common Visit Codes: [id number] DISCH DAY >30min KENYETTA LIU MD Nov 18, 2024 10:02
[2024-11-18] MEDS: SODIUM ZIRCONIUM CYCL 10 GM PAK PO ONE (12:03)
[2024-11-18] MEDS: FUROSEMIDE 40 MG/4 ML VIAL IV ONE (12:03)
[2024-11-18 12:24] VITALS: BP 107/56; PULSE 72; RESP 18; TEMP 97.8; O2SAT 97
[2024-11-18] MEDS: CALCIUM CHL 100MG/ML 1,000 MG in D5W 5% 100 ML IV ONE (12:30)
--- NOTE | 2024-11-18 16:15 | DVHPN2 ---
Progress Note Date Seen: Nov 18, 2024 Medical Necessity Reason Pt with a Central, PICC or Fol: No Subjective Patient reports: No new complaints Objective vital signs Vital Sign Date Time Temp Pulse Resp B/P (MAP) Pulse Ox O2 Delivery O2 Flow Rate FiO2 11/18/24 12:24 97.8 72 18 107/56 (73) 97 97.8 11/18/24 08:00 Nasal Cannula* 4 36 Total Intake and Output 11/17/24 11/17/24 11/18/24 15:00 23:00 07:00 Intake Total 50 ml 870 ml 900 ml Output Total 562 ml Balance 50 ml 308 ml 900 ml medications Current Medications Medications Dose Ordered Sig/Richard Route Start Time Stop Time Status Last Admin Dose Admin Oseltamivir Phosphate 30 mg DAILY PO 11/14/24 10:00 11/19/24 09:59 11/18/24 09:34 30 MG Furosemide 20 mg BIDD PO 11/14/24 10:00 11/18/24 05:51 20 MG Metoprolol Tartrate 25 mg DAILY PO 11/14/24 10:00 11/18/24 09:35 25 MG Spironolactone 25 mg BID PO 11/14/24 10:00 11/18/24 09:35 25 MG Isosorbide Dinitrate 30 mg DAILY PO 11/14/24 10:00 11/18/24 09:34 30 MG Pantoprazole Sodium 40 mg DAILY@0700 PO 11/14/24 09:27 11/18/24 05:52 40 MG Pregabalin 100 mg BID PO 11/14/24 10:00 11/18/24 09:33 100 MG Atorvastatin Calcium 10 mg HS PO 11/14/24 22:00 11/17/24 21:05 10 MG Clonidine HCl 0.2 mg BID PO 11/14/24 10:00 11/18/24 09:34 0.2 MG Acetaminophen/ Hydrocodone Bitart 1 tab Q4HP PRN PO 11/14/24 09:00 11/18/24 00:06 1 TAB Ondansetron HCl 4 mg Q4HP PRN IV 11/14/24 09:00 Acetaminophen 650 mg Q6HP PRN PO 11/14/24 09:00 11/16/24 14:41 650 MG Nitroglycerin 0.4 mg Q5MINP PRN SL 11/14/24 09:00 Morphine Sulfate 2 mg Q30M PRN IV 11/14/24 09:00 Ceftriaxone Sodium 50 ml @ 100 mls/hr DAILY@09 IV 11/14/24 09:00 11/18/24 09:29 100 MLS/HR Diagnostic Test (Pha) 1 strip Q6HR 11/14/24 12:00 11/18/24 12:04 1 STRIP Insulin Human Regular Q6HR SC 11/14/24 12:00 11/18/24 12:05 4 UNITS Dextrose 50 ml UD PRN IV 11/14/24 09:00 Doxycycline Hyclate 100 ml @ 50 mls/hr Q12HR IV 11/15/24 13:45 11/18/24 09:29 50 MLS/HR Examination: GENERAL:Normal, CVS:Normal laboratory and microbiology Laboratory Tests 11/18/24 05:53 Test 11/18/24 05:53 Range/Units Serum Glucose 141 H 74-106 mg/dL Microbiology Date/Time Source Procedure Growth Status 11/15/24 18:40 Blood Blood Culture - Preliminary NO GROWTH AFTER 48 HOURS OF INCUBATION. 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 [facility] +Influenza A- on tamiflu NSTEMI HTN DM type 2- well controlled Hyperkalemia Acute community-acquired bilateral pneumonia- on IV abx Slow improvement in renal function potassium replacement Currently on heparin drip Monitor fluid and electrolytes Avoid hypotension Patient has moderate to high-risk of contrast induced nephropathy if he receives contrast studies Plan discussed with: Patient Dietary Evaluation Review Comments: 1) CCHO 60 +renal specific 60gm 2) Refer CDE on DC 3) Continue current plan of care Expected Outcomes/Goals: To meet >75% estimated needs Fu 3-5 days IMELDA JACINTO MD Nov 18, 2024 16:15
--- NOTE | 2024-11-18 22:43 | DVHPN2 ---
Progress Note - Dictate Date Seen: Nov 18, 2024 Medical Necessity Reason Pt with a Central, PICC or Fol: No Subjective Patient was seen and evaluated in follow up. VQ scan showed low probability for PE. K 5.4, BUN 34, MOLD SHIFTER 1.97, GLUC 204. Patient is cardiac stable for discharge. Telemetry reviewed. vital signs Vital Sign Date Time Temp Pulse Resp B/P (MAP) Pulse Ox O2 Delivery O2 Flow Rate FiO2 11/18/24 12:24 97.8 72 18 107/56 (73) 97 97.8 11/18/24 08:00 Nasal Cannula* 4 36 Total Intake and Output 11/17/24 11/17/24 11/18/24 15:00 23:00 07:00 Intake Total 50 ml 870 ml 900 ml Output Total 562 ml Balance 50 ml 308 ml 900 ml medications Current Medications Medications Dose Ordered Sig/Richard Route Start Time Stop Time Status Last Admin Dose Admin Oseltamivir Phosphate 30 mg DAILY PO 11/14/24 10:00 11/19/24 09:59 11/18/24 09:34 30 MG Furosemide 20 mg BIDD PO 11/14/24 10:00 11/18/24 05:51 20 MG Metoprolol Tartrate 25 mg DAILY PO 11/14/24 10:00 11/18/24 09:35 25 MG Spironolactone 25 mg BID PO 11/14/24 10:00 11/18/24 09:35 25 MG Isosorbide Dinitrate 30 mg DAILY PO 11/14/24 10:00 11/18/24 09:34 30 MG Pantoprazole Sodium 40 mg DAILY@0700 PO 11/14/24 09:27 11/18/24 05:52 40 MG Pregabalin 100 mg BID PO 11/14/24 10:00 11/18/24 09:33 100 MG Atorvastatin Calcium 10 mg HS PO 11/14/24 22:00 11/17/24 21:05 10 MG Clonidine HCl 0.2 mg BID PO 11/14/24 10:00 11/18/24 09:34 0.2 MG Acetaminophen/ Hydrocodone Bitart 1 tab Q4HP PRN PO 11/14/24 09:00 11/18/24 00:06 1 TAB Ondansetron HCl 4 mg Q4HP PRN IV 11/14/24 09:00 Acetaminophen 650 mg Q6HP PRN PO 11/14/24 09:00 11/16/24 14:41 650 MG Nitroglycerin 0.4 mg Q5MINP PRN SL 11/14/24 09:00 Morphine Sulfate 2 mg Q30M PRN IV 11/14/24 09:00 Ceftriaxone Sodium 50 ml @ 100 mls/hr DAILY@09 IV 11/14/24 09:00 11/18/24 09:29 100 MLS/HR Diagnostic Test (Pha) 1 strip Q6HR 11/14/24 12:00 11/18/24 12:04 1 STRIP Insulin Human Regular Q6HR SC 11/14/24 12:00 11/18/24 12:05 4 UNITS Dextrose 50 ml UD PRN IV 11/14/24 09:00 Doxycycline Hyclate 100 ml @ 50 mls/hr Q12HR IV 11/15/24 13:45 11/18/24 09:29 50 MLS/HR objective GENERAL: Alert and oriented x 3. No acute distress. EYES: PERRL, EOMI. Anicteric. HENT: Moist mucous membranes. LUNGS: Clear to auscultation bilaterally. CARDIOVASCULAR: Regular rate and rhythm. ABDOMEN: Soft, non-tender and non-distended. EXTREMITIES: No edema. NEUROLOGIC: No focal neurological deficits. SKIN: Warm, dry. laboratory and microbiology Laboratory Tests 11/18/24 05:53 Test 11/18/24 05:53 Range/Units Serum Glucose 141 H 74-106 mg/dL Problem List NSTEMI rule out type 1. Possible cardiorenal syndrome. Possible acute on chronic CHF exacerbation. Elevated D-dimer - rule out PE. Acute respiratory failure likely 2/2 Influenza A and Pneumonia. Transaminitis. Hypertension. TORITO and CKD 4. Diabetes type 2. Hyperlipidemia. Obesity. Assessment/Plan Continued all current supportive medical care. Morphine and [place] for pain management. Lipitor, Metoprolol. IV antibiotics as ordered. Clonidine. Diuretics with Lasix. GI prophylactics. Additional plan as per the hospital course. Dietary Evaluation Review Comments: 1) CCHO 60 +renal specific 60gm 2) Refer CDE on DC 3) Continue current plan of care Expected Outcomes/Goals: To meet >75% estimated needs Fu 3-5 days Plan discussed with: Patient ERIN MCNAMARA MD Nov 18, 2024 14:15
== END 2024-11-18 16:55 | disposition home or self-care (01) | DRG 280 ==
LOC: ER 23:11 → EDBD 23:11 → OVERFLOW 11-14 08:59 → TELE-WESTW 11-14 10:53
PROVIDERS: ADMIT Family Medicine; ATTEND Family Medicine
DX: I21.4 Non-ST elevation (NSTEMI) myocardial infarction (principal); I50.33 Acute on chronic diastolic (congestive) heart failure; J15.69 Pneumonia due to other Gram-negative bacteria; J96.01 Acute respiratory failure with hypoxia; J10.00 Influenza due to other identified influenza virus with unspecified type of pneumonia; N17.9 Acute kidney failure, unspecified; I13.2 Hypertensive heart and chronic kidney disease with heart failure and with stage 5 chronic kidney disease, or end stage renal disease; N18.5 Chronic kidney disease, stage 5; Z68.29 Body mass index [BMI] 29.0-29.9, adult; R74.01 Elevation of levels of liver transaminase levels; E11.22 Type 2 diabetes mellitus with diabetic chronic kidney disease; E78.5 Hyperlipidemia, unspecified; E87.5 Hyperkalemia; K80.20 Calculus of gallbladder without cholecystitis without obstruction; E83.51 Hypocalcemia; I95.9 Hypotension, unspecified; E66.9 Obesity, unspecified; E78.00 Pure hypercholesterolemia, unspecified; Z82.49 Family history of ischemic heart disease and other diseases of the circulatory system; Z83.3 Family history of diabetes mellitus; Z79.899 Other long term (current) drug therapy
CPT/HCPCS: 36415; 71045; 74176; 76775; 78582; 80048; 80053; 80061; 82150; 82962; 83036; 83605; 83690; 83880; 84100; 84443; 84484; 84550; 85025; 85379; 85610; 85730; 87040; 87426; 87804; 93005; 93306; 96365; 99291; G0378; G9035; J1815; J7060; P9047